=== PATIENT | male | born 1940 | race Two or more races ===

== ENCOUNTER → 2016-07-24 11:09 | Outpatient (CLI) | payer MEDICARE, BC ==
[2012-09-24 07:08] VITALS: BMI 32.0
== END | disposition home or self-care (01) ==
LOC: D.MRI 11:09
DX: M54.12 Radiculopathy, cervical region (principal)

== ENCOUNTER → 2017-10-06 08:08 | Outpatient (CLI) | payer MEDICARE ==
[2012-09-24 07:08] VITALS: BMI 32.0
[~2017-10-06 08:08] MED LIST: ACTOS30 MG; BAYER CHEWABLE81 MG PO; CATAPRES0.1 MG PO; DESERYL100 MG PO; FEXMID7.5 MG PO; GLUCOPHAGE1000 MG PO; HYDROCODONE-APA1 TAB PO; LEVAQUIN750 MG PO; METOPROLOL TART50 MG PO; NEURONTIN800 MG PO; NIFEDIPINE ER90 MG PO; NORVASC5 MG PO; PLAVIX75 MG PO; REQUIP4 MG PO; TRESIBA FL100 UNIT/1 SC
[2017-10-26 17:41] VITALS: BMI 27.1
== END | disposition home or self-care (01) ==
LOC: D.CT 10-01 14:00
DX: I65.23 Occlusion and stenosis of bilateral carotid arteries (principal)

== ENCOUNTER → 2017-10-09 08:36 | Outpatient (CLI) | payer MEDICARE ==
[~2017-10-09] VITALS: Ht 165.1 cm; Wt 74.1 kg
--- NOTE | ~2017-10-09 | OP ---
PATIENT NAME: RUSTY MENDEZ JR MEDICAL RECORD: [id number] :42 LOCATION:[facility] ADMISSION DATE: SURGEON: JEREMI DYE MD DATE OF OPERATION: 10/09/2017 PROCEDURE: Four-vessel carotid and vertebral angiography. INDICATION: Carotid vascular disease. PROCEDURE PERFORMED: After informed consent was obtained and after a detailed description of risks, benefits as well as alternative therapies, the patient elected to proceed with angiogram. The right femoral area had a preexisting sheath from coronary intervention. All catheter exchanged through this sheath. FINDINGS: There was subselection of each subclavian as well as the left carotid. RIGHT SIDE: The common and external carotids are widely patent. Internal carotid has 80% and 90% stenosis. Vertebral artery is widely patent. LEFT SYSTEM: The vertebral artery is totally occluded. The common and external carotids are patent. The internal carotid is totally occluded. 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 TRANSINT:[id number] Voice Confirmation ID: [id number] DOCUMENT ID: [id number] JEREMI DYE MD at 1849 CC: [id number] DICTATION DATE: 10/09/17 1402 QA AUTOMATION DEVELOPER: 10/09/17 2223 DEP CLI 10/09/17 [id number] [place] [address]
--- NOTE | ~2017-10-09 | HEMODYNAMI ---
PATIENT:RUSTY MENDEZ JR MEDICAL RECORD: [id number] : 42 LOCATION:[facility] ADMISSION DATE: 10/09/17 Generatedon:10/09/201714:07 Patient name: RUSTY MENDEZ Patient #: [id number] SSN: : 1940 Date of study: 10/09/2017 Page: Of Hemodynamic Procedure Report Patient Data Patient Demographics Procedure consent was obtained First Name: RUSTY Gender: Male Last Name: VANESSA Suffix: Patient #: [id number] : 1940 Age: 77 year(s) Accession #: Race: Other [id number] Additional ID: [id number] Contact details [address]: [address] [place] [address] State: [place] City: [place] Zip code: [address] Admission Admission Data Admission Date: 10/09/2017 Admission Time: 8:36 Admit Source: Other Procedure Procedure Types Cath Procedure Diagnostic Procedure LHC LHC w/Coronaries PCI Procedure Coronary Stent Coronary Stent Initial Peripheral Cath Diagnostic Procedure Cath Peripheral Four Vessel Arteriogram Procedure Description Procedure Date Procedure Date: 10/09/2017 Procedure Start Time: 13:43 Procedure End Time: 14:00 Procedure Staff Name Function Sigrid Mata RT Monitor Darren Packer RN Hardwood Finisher Brenton Denny MD Performing Physician Miah Shah RT Scrub Dilan Hagen RN Nurse Procedure Data Cath Procedure Fluoroscopy Diagnostic fluoroscopy Total fluoroscopy Time: 4.2 time: 4.2 min min Diagnostic fluoroscopy Total fluoroscopy dose: 462 dose: 462 mGy mGy Contrast Material Contrast Material Type Amount (ml) Isovue 370 137 Entry Location Entry Primary Successful Side Size Upsize Upsize Entry Closure Rodrigez ccessful Closure Location (Fr) 1 (Fr) 2 (Fr) Remarks Device Remarks Femoral Right 5 Fr 6 Fr Mechanical artery Short Compression Estimated blood loss: 10 ml Diagnostic catheters Device Type Used For End Catheter Placement MULTIPACK Pigtail 5 Fr LV Angiography catheter MULTIPACK JL 4.0 5Fr Left Coronary catheter Angiography MULTIPACK 3DRC 5Fr Right Coronary catheter Angiography MULTIPACK 3DRC 5Fr Vertebral (neck catheter and/or head) arteriography MULTIPACK 3DRC 5Fr Cervical carotid catheter (common) arteriography MULTIPACK 3DRC 5Fr Cervical carotid catheter (common) arteriography MULTIPACK 3DRC 5Fr Vertebral (neck catheter and/or head) arteriography Procedure Complications No complications Procedure Medications Medication Administration Route Dosage 0.9% NaCl I.V. 100 ml/hr Oxygen etCO2 Nasal cannula 2 l/min Heparin Flush Bag added to field 2 bags (1000units/500ml NS) Lidocaine 2% added to field 20 Versed I.V. 1 mg Fentanyl I.V. 50 mcg Fentanyl I.V. 50 mcg Versed I.V. 1 mg Heparin Bolus I.V. 4000 units Hemodynamics Rest Heart Rate: 55 (bpm) Snapshots Pre Cath Intra NCS Post Cath Vital Signs Time Heart Resp SPO2 etCO2 NIBP (mmHg) Rhythm Pain Sedation Rate (ipm) (%) (mmHg) Status Level (bpm) 13:38:30 78 21 97 20.9 161/82(140) NSR 0 (11) 10(A) , No pain 13:43:11 66 16 99 39.7 172/100(140) NSR 0 (11) 10(A) , No pain 13:47:56 65 15 98 17.2 172/88(131) NSR 0 (11) 10(A) , No pain 13:52:45 66 15 96 34.4 178/70(94) NSR 0 (11) 10(A) , No pain 13:57:31 68 13 99 25.4 187/94(135) NSR 0 (11) 10(A) , No pain Medications Time Medication Route Dose Verified Delivered Reason Notes Effectiveness by by 13:34:34 0.9% NaCl I.V. 100 Dilan Dilan Per physician ml/hr Hieu Hagen RN RN 13:34:44 Oxygen etCO2 2 Dilan Dilan Per physician Nasal l/min Hieu Hagen cannula RN RN 13:34:53 Heparin Flush added 2 Dilan Dilan used for Bag to bags Hieu Hagen procedure (1000units/500ml field DECKER RN NS) 13:35:03 Lidocaine 2% added 20ml Dilan Dilan for local to vial Lorigan Lorigan anesthetic field JERONIMO DECKER 13:42:13 Versed I.V. 1 mg Dilan Dilan for sedation Hieu Hagen RN, RN 13:42:21 Fentanyl I.V. 50 Dilan Dilan for sedation mcg Hieu Hagen RN RN 13:44:53 Fentanyl I.V. 50 Dilan Dilan for sedation mcg Hieu Hagen RN, RN 13:45:00 Versed I.V. 1 mg Dilan Dilan for sedation Hieu Hagen RN RN 13:51:49 Heparin Bolus I.V. 4000 Dilan Dilan for units Hieu Hagen anticoagulation RN multifocal button generator Log Time Note 13:15:20 Informed consent obtained and on chart 13:15:25 Admit Source: Other 13:15:44 Diagnostic Cath status Elective 13:15:45 Darren Packer RN sent for patient. Start room use. 13:15:46 Time tracking: Regular hours (M-F 7:00 - 5:00) 13:15:49 Plan of Care:Hemodynamics will remain stable., Cardiac rhythm will remain stable., Comfort level will be maintained., Respiratory function will remain adequate., Patient/ family verbilizes understanding of procedure., Procedure tolerated without complication., Recovers from procedure without complications.. 13:23:25 Patient received from Pre/Post Procedure Room to CCL 1 Alert and oriented. Tansferred to table in Supine position. 13:23:27 Correct patient and procedure confirmed by team. 13:23:27 Warm blankets applied, and erin hugger turned on for patient comfort. 13:23:28 ECG and BP/O2 sat monitors applied to patient. 13:23:30 Full Disclosure recording started 13:34:34 0.9% NaCl 100 ml/hr I.V. was administered by Dilan Hagen RN; Per physician; 13:34:44 Oxygen 2 l/min etCO2 Nasal cannula was administered by Dilan Hagen RN; Per physician; 13:34:53 Heparin Flush Bag (1000units/500ml NS) 2 bags added to field was administered by Dilan Hagen RN; used for procedure; 13:35:03 Lidocaine 2% 20ml vial added to field was administered by Dialn Hagen RN; for local anesthetic; 13:37:37 Vital chart was started 13:37:41 Rhythm: sinus rhythm 13:37:51 H&P Date Dictated: 09/29/2017 Within 30 days and on chart., H&P Addendum completed by physician on day of procedure. (MUST COMPLETE FOR ALL OUTPATIENTS). 13:37:53 Pre-op teaching completed and patient verbalized understanding. 13:37:53 Pre-procedure instructions explained to patient. 13:37:55 Family in patients room. 13:37:57 Patient NPO since Midnight. 13:38:00 Is the patient allergic to Iodine/contrast media? No. 13:38:02 Is patient on blood thinner?Yes 13:38:04 ACC The patient was administered the following blood thiners within the last 24 hours: ACCPlavix 13:38:06 Patient diabetic? Yes. 13:38:07 If diabetic: On Metformin? Yes 13:38:09 If on Metformin: Last Dose? 10/04/2017 13:38:12 Previous problem with sedation/anesthesia? No ? 13:38:14 Snore? No 13:38:15 Sleep apnea? No 13:38:16 Deviated septum? No 13:38:17 Opens mouth fully? Yes 13:38:18 Sticks out tongue? Yes 13:38:19 Airway obstruction? No ? 13:38:21 Dentures? No ? 13:38:23 Pre procedure: right dorsailis pedis pulse 2+ Normal; easily identifiable; not easily obliterated 13:38:24 Patient pain scale 0/10 ?. 13:38:30 IV patent on arrival in left forearm with 0.9% NaCl at [facility]. 13:38:33 Lab results completed and on chart. 13:38:35 Right groin area was prepped with chlora-prep and draped in sterile fashion 13:38:36 Sharps counted by scrub and verified by R.N. 13:38:36 Alarms reviewed by R. N. 13:38:40 Use device set Femoral Dx 13:38:41 Bag Decanter (2001S) opened to sterile field. 13:38:41 ACIST Syringe (48153) opened to sterile field. 13:38:42 Medline Cath Pack ([id number]) opened to sterile field. 13:38:43 DIAGNOSTIC WIRE .035 260cm J wire (112323) opened to sterile field. 13:38:44 ACIST Manifold (47029) opened to sterile field. 13:38:44 ACIST Hand Control (51461) opened to sterile field. 13:38:45 Tegaderm 4 x 4 (0386W) opened to sterile field. 13:38:45 DIAGNOSTIC Multipack 5Fr catheter set (UQ0055) opened to sterile field. 13:38:46 PERCUTANEOUS ENTRY 19GA needle opened to sterile field. 13:38:47 SHEATH Prelude 5Fr 0.035 (PFS-0G-38-035) opened to sterile field. 13:39:18 Baseline sample Acquired. 13:39:22 Physician paged 13:40:47 Final Timeout: patient, procedure, and site verified with staff and physician. All members of the team are in agreement. 13:40:49 Right groin site verified by team. 13:40:51 Physical assessment completed. ASA score P 2 - A patient with mild systemic disease as per Brenton Denny MD. 13:40:54 Sedation plan: IV Moderate Sedation Medication:Versed, Fentanyl 13:41:42 Zero performed for pressure channel P1 13:41:53 Zero performed for pressure channel P1 13:42:13 Versed 1 mg I.V. was administered by Dilan Hagen RN; for sedation; 13:42:21 Fentanyl 50 mcg I.V. was administered by Dilan Hagen RN; for sedation; 13:43:00 Procedure started. 13:43:03 Local anesthetic to right femoral artery with Lidocaine 2% by Brenton Denny MD.INITIAL ACCESS ONLY 13:43:21 A 5 Fr sheath was inserted into the Right Femoral artery 13:44:53 Fentanyl 50 mcg I.V. was administered by Dilan Hagen RN; for sedation; 13:45:00 Versed 1 mg I.V. was administered by Dilan Hagen RN; for sedation; 13:45:24 A MULTIPACK Pigtail 5 Fr catheter was advanced over the wire and used for LV Angiography. 13:45:27 LV gram done using TONY 13:45:30 Injector settings: Ml/sec: 10, Volume: 20, 13:45:31 Catheter removed. 13:45:39 A MULTIPACK JL 4.0 5Fr catheter was advanced over the wire and used for Left Coronary Angiography. 13:46:02 Use device set MARNIE PCI 13:46:04 INFLATOR Merit BasixCompak (QC6890) opened to sterile field. 13:46:08 SHEATH Prelude 6Fr 0.035 (HAS-0U-29-035) opened to sterile field. 13:46:30 Catheter removed. 13:46:46 A MULTIPACK 3DRC 5Fr catheter was advanced over the wire and used for Right Coronary Angiography. 13:46:50 CHOICE PT Extra Support 182cm wire ([id number]) opened to sterile field. 13:48:08 A MULTIPACK 3DRC 5Fr catheter was advanced over the wire and used for Vertebral (neck and/or head) arteriography. left 13:48:24 A MULTIPACK 3DRC 5Fr catheter was advanced over the wire and used for Cervical carotid (common) arteriography.LEFT 13:49:30 A MULTIPACK 3DRC 5Fr catheter was advanced over the wire and used for Cervical carotid (common) arteriography.RIGHT 13:49:46 A MULTIPACK 3DRC 5Fr catheter was advanced over the wire and used for Vertebral (neck and/or head) arteriography.RIGHT 13:49:49 Catheter removed. 13:50:19 GUIDE 6FR AR 1.0 catheter ([id number]) opened to sterile field. 13:50:29 Sheath upsized to a 6 Fr Short. 13:51:45 6 Fr AR 1.0 guide catheter was inserted over the wire 13:51:49 Heparin Bolus 4000 units I.V. was administered by Dilan Hagen RN; for anticoagulation; 13:52:18 CHOICE PT ES wire advanced. 13:53:41 Place stent Inflation Number: 1 A VERONICA RX 3.0 x 15 stent ([id number]) was prepped and advanced across the Dist RCA. The stent was deployed at 11 ANNIKA for 0:09 (min:sec). 13:54:13 Stent catheter was removed intact over wire. 13:55:07 Place stent Inflation Number: 1 A VERONICA RX 3.5 x 18 stent ([id number]) was prepped and advanced across the Mid RCA. The stent was deployed at 15 ANNIKA for 0:07 (min:sec). 13:55:20 Stent catheter was removed intact over wire. 13:55:36 Guide catheter removed. 13:55:36 Wire removed. 13:55:46 Sheath removed intact; hemostasis achieved with Mechanical Compression to the Right Femoral artery. 13:56:01 Procedure ended.(Physican Out) 13:56:24 Fluoroscopy time 04.20 minutes. 13:56:27 Fluoroscopy dose: 462 mGy 13:56:27 Flurop Dose total: 462 13:56:32 Contrast amount:Isovue 370 137ml. 13:56:33 Sharps counted by scrub and verified by R.N. 13:56:57 Insertion/operative site no bleeding no hematoma. 13:57:00 Post-op/insertion site Right Femoral artery dressed using a 4 x 4 and Tegaderm. 13:57:03 Post right femoral artery:stable, clean and dry 13:57:08 Post Procedure Pulses reassessed and unchanged 13:57:10 Post-procedure physical assessment completed. ASA score P 2 - A patient with mild systemic disease as per Brenton Denny MD. 13:57:13 Post procedure rhythm: unchanged. 13:57:15 Estimated blood loss: 10 ml 13:57:16 Post procedure instruction explained to patient.Patient verbalizes understanding. 13:57:17 Patient needs reinforcement of post procedure teaching. 13:57:37 Procedure type changed to Cath procedure, Diagnostic procedure, LHC, LHC w/Coronaries, PCI procedure, Coronary Stent, Coronary Stent Initial, Peripheral Cath Diagnostic Procedure, Cath Peripheral, Four Vessel Arteriogram 13:57:47 Procedure Complication : No complications 13:57:49 See physician's report for complete and final results. 13:57:57 EXOSEAL 6Fr (EX600) opened to sterile field. 13:58:08 Post right femoral artery:oozing 13:58:23 Femstop placed over the right femoral artery at 210 mmHg. Hemostasis achieved. 13:58:40 FEMSTOP Gold (E68634) opened to sterile field. 13:58:40 Procedure and supply charges have been captured, reviewed, submitted and are correct. 14:00:29 Vital chart was stopped 14:00:31 Report given to Pre/Post Procedure Room. 14:00:33 Patient transfered to Pre/Post Procedure Room with Stretcher. 14:00:44 Full Disclosure recording stopped 14:00:44 Procedure ended. 14:00:47 End room use (Document Last) Intervention Summary Intervention Notes Time ActionType Lesion and Equipment Used Action# Pressure Duration Attributes 13:53:41 Place stent Dist RCA VERONICA RX 3.0 x 1 11 00:09 15 stent ([id number]) 13:55:07 Place stent Mid RCA VERONICA RX 3.5 x 1 15 00:07 18 stent ([id number]) Device Usage Item Name Manufacture Quantity Catalog Number Hospital Part Current Minimal Lot# / Charge Number Stock Stock Serial# Code ACIST Syringe Acist 1 10514 508107 087758 122165 20 (91698) [employer] Bag Decanter Microtek 1 689964 27132 532934 5 () Medical Inc. Medline Cath Cardinal 1 [id number] 783003 40404 988821 5 Pack Health ([id number]) DIAGNOSTIC WIRE [facility] [place] 1 301903 953113 199186 053976 30 .035 260cm J wire (996850) ACIST Hand Acist 1 42413 801502 292231 693628 5 Control (70352) [employer] Inc ACIST Manifold Acist 1 82415 244113 243898 375778 5 (02948) [employer] Inc DIAGNOSTIC Cardinal 1 ME7084 015085 83311 946022 30 Multipack 5Fr Health catheter set ([id number]) Tegaderm 4 x 4 3M 1 1626W 249949 756633 299962 5 (1626W) PERCUTANEOUS Cook Medical 1 D28033 529982 183109 5 ENTRY 19GA needle SHEATH Prelude Merit 1 SBH-1H-58-035 531882 260293 347361 5 5Fr 0.035 Medical (PFL-3W-11-035) MULTIPACK Cardinal 1 952195 5 Pigtail 5 Fr Health catheter MULTIPACK JL Cardinal 1 782722 5 4.0 5Fr Health catheter INFLATOR Merit Merit 1 UN1727 495601 798683 701633 15 BasixComLatinComicsk Medical ([id number]) SHEATH Prelude Merit 1 VON-1P-59-35 538852 8676904 460862 5 6Fr 0.035 Medical (TDS-5V-08-035) MULTIPACK 3DRC Cardinal 1 485592 5 5Fr catheter Health CHOICE PT Extra [place] 1 [id number] 773103 303117 265582 5 Support 182cm Scientific wire ([id number]) GUIDE 6FR AR Medtronic 1 [id number] 580129 59315 617875 1 1.0 catheter (EN2TB88) VERONICA RX 3.0 x Medtronic 1 [id number] 707569 1951285 571501 5 [id number] 15 stent ([id number]) VERONICA RX 3.5 x Medtronic 1 [id number] 678687 2722670 304223 5 [id number] 18 stent ([id number]) EXOSEAL 6Fr Cardinal 1 EX600 335426 276993 721148 10 (EX600) Health FEMSTOP Gold [facility] [place] 1 G11515 811615 452840 940835 5 ([id number]) Signature Audit Gilbert Stage Time Signature Unsigned Intra-Procedure 10/09/2017 Sigrid Matta Counts 2:01:01 PM Counts RT(R) RT(R) 10/09/2017 2:05:37 PM Intra-Procedure 10/09/2017 Sigrid 2:07:16 PM Counts RT(R) Signatures Monitor : Sigrid Signature : Counts RT Date : Time : [address] [address]
--- NOTE | ~2017-10-09 | HEMODYNAMI ---
PATIENT:RUSTY MENDEZ JR MEDICAL RECORD: [id number] : 42 LOCATION:[facility] ADMISSION DATE: 10/09/17 Generatedon:10/09/201714:01 Patient name: RUSTY MENDEZ Patient #: [id number] SSN: : 1940 Date of study: 10/09/2017 Page: Of Hemodynamic Procedure Report Patient Data Patient Demographics Procedure consent was obtained First Name: RUSTY Gender: Male Last Name: VANESSA Suffix: Patient #: [id number] : 1940 Age: 77 year(s) Accession #: Race: Other [id number] Additional ID: [id number] Contact details Address: [address] [place] [address] State: [place] City: [place] Zip code: [address] Admission Admission Data Admission Date: 10/09/2017 Admission Time: 8:36 Admit Source: Other Procedure Procedure Types Cath Procedure Diagnostic Procedure LHC LHC w/Coronaries PCI Procedure Coronary Stent Coronary Stent Initial Peripheral Cath Diagnostic Procedure Cath Peripheral Four Vessel Arteriogram Procedure Description Procedure Date Procedure Date: 10/09/2017 Procedure Start Time: 13:43 Procedure End Time: 14:00 Procedure Staff Name Function Brenton Denny MD Performing Physician Sigrid Mata RT Monitor Miah Shah RT Scrub Dilan Hagen RN Nurse Darren Packer RN Staff Development Nurse Procedure Data Cath Procedure Fluoroscopy Diagnostic fluoroscopy Total fluoroscopy Time: 4.2 time: 4.2 min min Diagnostic fluoroscopy Total fluoroscopy dose: 462 dose: 462 mGy mGy Contrast Material Contrast Material Type Amount (ml) Isovue 370 137 Entry Location Entry Primary Successful Side Size Upsize Upsize Entry Closure Succes sful Closure Location (Fr) 1 (Fr) 2 (Fr) Remarks Device Remarks Femoral Right 5 Fr 6 Fr Exoseal artery Short Estimated blood loss: 10 ml Diagnostic catheters Device Type Used For End Catheter Placement MULTIPACK Pigtail 5 Fr LV Angiography catheter MULTIPACK JL 4.0 5Fr Left Coronary catheter Angiography MULTIPACK 3DRC 5Fr Right Coronary catheter Angiography MULTIPACK 3DRC 5Fr Vertebral (neck catheter and/or head) arteriography MULTIPACK 3DRC 5Fr Cervical carotid catheter (common) arteriography MULTIPACK 3DRC 5Fr Cervical carotid catheter (common) arteriography MULTIPACK 3DRC 5Fr Vertebral (neck catheter and/or head) arteriography Procedure Complications No complications Procedure Medications Medication Administration Route Dosage 0.9% NaCl I.V. 100 ml/hr Oxygen etCO2 Nasal cannula 2 l/min Heparin Flush Bag added to field 2 bags (1000units/500ml NS) Lidocaine 2% added to field 20 Versed I.V. 1 mg Fentanyl I.V. 50 mcg Fentanyl I.V. 50 mcg Versed I.V. 1 mg Heparin Bolus I.V. 4000 units Hemodynamics Rest Heart Rate: 55 (bpm) Snapshots Pre Cath Intra NCS Post Cath Vital Signs Time Heart Resp SPO2 etCO2 NIBP (mmHg) Rhythm Pain Sedation Rate (ipm) (%) (mmHg) Status Level (bpm) 13:38:30 78 21 97 20.9 161/82(140) NSR 0 (11) 10(A) , No pain 13:43:11 66 16 99 39.7 172/100(140) NSR 0 (11) 10(A) , No pain 13:47:56 65 15 98 17.2 172/88(131) NSR 0 (11) 10(A) , No pain 13:52:45 66 15 96 34.4 178/70(94) NSR 0 (11) 10(A) , No pain 13:57:31 68 13 99 25.4 187/94(135) NSR 0 (11) 10(A) , No pain Medications Time Medication Route Dose Verified Delivered Reason Notes Effectiveness by by 13:34:34 0.9% NaCl I.V. 100 Dilan Dilan Per physician ml/hr Hieu Hagen RN RN 13:34:44 Oxygen etCO2 2 Dilan Dilan Per physician Nasal l/min Hieu Hagen cannula RN RN 13:34:53 Heparin Flush added 2 Dilan Dilan used for Bag to bags Hieu Hagen procedure (1000units/500ml field DECKER RN NS) 13:35:03 Lidocaine 2% added 20ml Dilan Dilan for local to vial Lorigan Lorigan anesthetic field JERONIMO DECKER 13:42:13 Versed I.V. 1 mg Dilan Dilan for sedation Hieu Hagen RN, RN 13:42:21 Fentanyl I.V. 50 Dilan Dilan for sedation mcg Hieu Hagen RN RN 13:44:53 Fentanyl I.V. 50 Dilan Dilan for sedation mcg Hieu Hagen RN RN 13:45:00 Versed I.V. 1 mg Dilan Dilan for sedation Hieu Hagen RN RN 13:51:49 Heparin Bolus I.V. 4000 Dilan Dilan for units Hieu Hagen anticoagulation RN regional driver Log Time Note 13:15:20 Informed consent obtained and on chart 13:15:25 Admit Source: Other 13:15:44 Diagnostic Cath status Elective 13:15:45 Darren Packer RN sent for patient. Start room use. 13:15:46 Time tracking: Regular hours (M-F 7:00 - 5:00) 13:15:49 Plan of Care:Hemodynamics will remain stable., Cardiac rhythm will remain stable., Comfort level will be maintained., Respiratory function will remain adequate., Patient/ family verbilizes understanding of procedure., Procedure tolerated without complication., Recovers from procedure without complications.. 13:23:25 Patient received from Pre/Post Procedure Room to CCL 1 Alert and oriented. Tansferred to table in Supine position. 13:23:27 Warm blankets applied, and erin hugger turned on for patient comfort. 13:23:27 Correct patient and procedure confirmed by team. 13:23:28 ECG and BP/O2 sat monitors applied to patient. 13:23:30 Full Disclosure recording started 13:34:34 0.9% NaCl 100 ml/hr I.V. was administered by Dilan Hagen RN; Per physician; 13:34:44 Oxygen 2 l/min etCO2 Nasal cannula was administered by Dilan Hagen RN; Per physician; 13:34:53 Heparin Flush Bag (1000units/500ml NS) 2 bags added to field was administered by Dilan Hagen RN; used for procedure; 13:35:03 Lidocaine 2% 20ml vial added to field was administered by Dilan Hagen RN; for local anesthetic; 13:37:37 Vital chart was started 13:37:41 Rhythm: sinus rhythm 13:37:51 H&P Date Dictated: 09/29/2017 Within 30 days and on chart., H&P Addendum completed by physician on day of procedure. (MUST COMPLETE FOR ALL OUTPATIENTS). 13:37:53 Pre-procedure instructions explained to patient. 13:37:53 Pre-op teaching completed and patient verbalized understanding. 13:37:55 Family in patients room. 13:37:57 Patient NPO since Midnight. 13:38:00 Is the patient allergic to Iodine/contrast media? No. 13:38:02 Is patient on blood thinner?Yes 13:38:04 ACC The patient was administered the following blood thiners within the last 24 hours: ACCPlavix 13:38:06 Patient diabetic? Yes. 13:38:07 If diabetic: On Metformin? Yes 13:38:09 If on Metformin: Last Dose? 10/04/2017 13:38:12 Previous problem with sedation/anesthesia? No ? 13:38:14 Snore? No 13:38:15 Sleep apnea? No 13:38:16 Deviated septum? No 13:38:17 Opens mouth fully? Yes 13:38:18 Sticks out tongue? Yes 13:38:19 Airway obstruction? No ? 13:38:21 Dentures? No ? 13:38:23 Pre procedure: right dorsailis pedis pulse 2+ Normal; easily identifiable; not easily obliterated 13:38:24 Patient pain scale 0/10 ?. 13:38:30 IV patent on arrival in left forearm with 0.9% NaCl at [facility]. 13:38:33 Lab results completed and on chart. 13:38:35 Right groin area was prepped with chlora-prep and draped in sterile fashion 13:38:36 Alarms reviewed by R. N. 13:38:36 Sharps counted by scrub and verified by R.N. 13:38:40 Use device set Femoral Dx 13:38:41 ACIST Syringe (51399) opened to sterile field. 13:38:41 Bag Decanter (2002S) opened to sterile field. 13:38:42 Medline Cath Pack ([id number]) opened to sterile field. 13:38:43 DIAGNOSTIC WIRE .035 260cm J wire (477966) opened to sterile field. 13:38:44 ACIST Hand Control (84135) opened to sterile field. 13:38:44 ACIST Manifold (36685) opened to sterile field. 13:38:45 DIAGNOSTIC Multipack 5Fr catheter set (CP9802) opened to sterile field. 13:38:45 Tegaderm 4 x 4 (1626W) opened to sterile field. 13:38:46 PERCUTANEOUS ENTRY 19GA needle opened to sterile field. 13:38:47 SHEATH Prelude 5Fr 0.035 (CGL-2T-13-035) opened to sterile field. 13:39:18 Baseline sample Acquired. 13:39:22 Physician paged 13:40:47 Final Timeout: patient, procedure, and site verified with staff and physician. All members of the team are in agreement. 13:40:49 Right groin site verified by team. 13:40:51 Physical assessment completed. ASA score P 2 - A patient with mild systemic disease as per Brenton Denny MD. 13:40:54 Sedation plan: IV Moderate Sedation Medication:Versed, Fentanyl 13:41:42 Zero performed for pressure channel P1 13:41:53 Zero performed for pressure channel P1 13:42:13 Versed 1 mg I.V. was administered by Dilan Hagen RN; for sedation; 13:42:21 Fentanyl 50 mcg I.V. was administered by Dilan Hagen RN; for sedation; 13:43:00 Procedure started. 13:43:03 Local anesthetic to right femoral artery with Lidocaine 2% by Brenton Denny MD.INITIAL ACCESS ONLY 13:43:21 A 5 Fr sheath was inserted into the Right Femoral artery 13:44:53 Fentanyl 50 mcg I.V. was administered by Dilan Hagen RN; for sedation; 13:45:00 Versed 1 mg I.V. was administered by Dilan Hagen RN; for sedation; 13:45:24 A MULTIPACK Pigtail 5 Fr catheter was advanced over the wire and used for LV Angiography. 13:45:27 LV gram done using TONY 13:45:30 Injector settings: Ml/sec: 10, Volume: 20, 13:45:31 Catheter removed. 13:45:39 A MULTIPACK JL 4.0 5Fr catheter was advanced over the wire and used for Left Coronary Angiography. 13:46:02 Use device set MARNIE PCI 13:46:04 INFLATOR Merit BasixCompak (LH6868) opened to sterile field. 13:46:08 SHEATH Prelude 6Fr 0.035 (GKV-4X-99-035) opened to sterile field. 13:46:30 Catheter removed. 13:46:46 A MULTIPACK 3DRC 5Fr catheter was advanced over the wire and used for Right Coronary Angiography. 13:46:50 CHOICE PT Extra Support 182cm wire ([id number]) opened to sterile field. 13:48:08 A MULTIPACK 3DRC 5Fr catheter was advanced over the wire and used for Vertebral (neck and/or head) arteriography. left 13:48:24 A MULTIPACK 3DRC 5Fr catheter was advanced over the wire and used for Cervical carotid (common) arteriography.LEFT 13:49:30 A MULTIPACK 3DRC 5Fr catheter was advanced over the wire and used for Cervical carotid (common) arteriography.RIGHT 13:49:46 A MULTIPACK 3DRC 5Fr catheter was advanced over the wire and used for Vertebral (neck and/or head) arteriography.RIGHT 13:49:49 Catheter removed. 13:50:19 GUIDE 6FR AR 1.0 catheter (GY1CH01) opened to sterile field. 13:50:29 Sheath upsized to a 6 Fr Short. 13:51:45 6 Fr AR 1.0 guide catheter was inserted over the wire 13:51:49 Heparin Bolus 4000 units I.V. was administered by Dilan Hagen RN; for anticoagulation; 13:52:18 CHOICE PT ES wire advanced. 13:53:41 Place stent Inflation Number: 1 A VERONICA RX 3.0 x 15 stent ([id number]) was prepped and advanced across the Dist RCA. The stent was deployed at 11 ANNIKA for 0:09 (min:sec). 13:54:13 Stent catheter was removed intact over wire. 13:55:07 Place stent Inflation Number: 1 A VERONICA RX 3.5 x 18 stent ([id number]) was prepped and advanced across the Mid RCA. The stent was deployed at 15 ANNIKA for 0:07 (min:sec). 13:55:20 Stent catheter was removed intact over wire. 13:55:36 Wire removed. 13:55:36 Guide catheter removed. 13:55:46 Sheath removed intact; hemostasis achieved with Exoseal to the Right Femoral artery. 13:56:01 Procedure ended.(Physican Out) 13:56:24 Fluoroscopy time 04.20 minutes. 13:56:27 Fluoroscopy dose: 462 mGy 13:56:27 Flurop Dose total: 462 13:56:32 Contrast amount:Isovue 370 137ml. 13:56:33 Sharps counted by scrub and verified by R.N. 13:56:57 Insertion/operative site no bleeding no hematoma. 13:57:00 Post-op/insertion site Right Femoral artery dressed using a 4 x 4 and Tegaderm. 13:57:03 Post right femoral artery:stable, clean and dry 13:57:08 Post Procedure Pulses reassessed and unchanged 13:57:10 Post-procedure physical assessment completed. ASA score P 2 - A patient with mild systemic disease as per Brenton Denny MD. 13:57:13 Post procedure rhythm: unchanged. 13:57:15 Estimated blood loss: 10 ml 13:57:16 Post procedure instruction explained to patient.Patient verbalizes understanding. 13:57:17 Patient needs reinforcement of post procedure teaching. 13:57:37 Procedure type changed to Cath procedure, Diagnostic procedure, LHC, LHC w/Coronaries, PCI procedure, Coronary Stent, Coronary Stent Initial, Peripheral Cath Diagnostic Procedure, Cath Peripheral, Four Vessel Arteriogram 13:57:47 Procedure Complication : No complications 13:57:49 See physician's report for complete and final results. 13:57:57 EXOSEAL 6Fr (EX600) opened to sterile field. 13:58:40 Procedure and supply charges have been captured, reviewed, submitted and are correct. 14:00:29 Vital chart was stopped 14:00:31 Report given to Pre/Post Procedure Room. 14:00:33 Patient transfered to Pre/Post Procedure Room with Stretcher. 14:00:44 Procedure ended. 14:00:44 Full Disclosure recording stopped 14:00:47 End room use (Document Last) Intervention Summary Intervention Notes Time ActionType Lesion and Equipment Used Action# Pressure Duration Attributes 13:53:41 Place stent Dist RCA VERONICA RX 3.0 x 1 11 00:09 15 stent ([id number]) 13:55:07 Place stent Mid RCA VERONICA RX 3.5 x 1 15 00:07 18 stent ([id number]) Device Usage Item Name Manufacture Quantity Catalog Number Hospital Part Current Minimal Lot# / Charge Number Stock Stock Serial# Code ACIST Syringe Acist 1 82570 509498 282621 470067 20 (00853) [employer] Bag Decanter Microtek 1 2001S 193214 86207 499114 5 (2001S) Medical Inc. Medline Cath Cardinal 1 [id number] 003219 37023 550538 5 Pack Health ([id number]) DIAGNOSTIC WIRE [place] 1 641799 887003 817948 312573 30 .035 260cm J wire (438342) ACIST Hand Acist 1 91693 017045 581819 230562 5 Control (32549) [employer] Inc ACIST Manifold Acist 1 49911 906599 673493 347640 5 (62022) [employer] Inc DIAGNOSTIC Cardinal 1 QY9612 813132 48916 043214 30 Multipack 5Fr Health catheter set (JM1229) Tegaderm 4 x 4 3M 1 1626W 388057 620269 452922 5 (1626W) PERCUTANEOUS Cook Medical 1 H46075 534917 477559 5 ENTRY 19GA needle SHEATH Prelude Merit 1 PHJ-3W-18-035 432417 523124 150300 5 5Fr 0.035 Medical (BZM-0Z-92-035) MULTIPACK Cardinal 1 600781 5 Pigtail 5 Fr Health catheter MULTIPACK JL Cardinal 1 066664 5 4.0 5Fr Health catheter INFLATOR Merit Merit 1 CE3945 921145 892297 117178 15 BasixCompak Medical (CK5099) SHEATH Prelude Merit 1 EWK-7R-78-35 911046 3735091 442466 5 6Fr 0.035 Medical (CUB-4A-89-035) MULTIPACK 3DRC Cardinal 1 893847 5 5Fr catheter Health CHOICE PT Extra [place] 1 [id number] 287144 474934 935145 5 Support 182cm Scientific wire ([id number]) GUIDE 6FR AR Medtronic 1 QO1HM16 523852 78879 342357 1 1.0 catheter (ZM2KZ00) VERONICA RX 3.0 x Medtronic 1 [id number] 183410 4701084 901799 5 [id number] 15 stent ([id number]) VERONICA RX 3.5 x Medtronic 1 [id number] 835336 6964011 100419 5 [id number] 18 stent ([id number]) EXOSEAL 6Fr Cardinal 1 EX600 019568 584891 088171 10 (EX600) Health Signature Audit [place] Stage Time Signature Unsigned Intra-Procedure 10/09/2017 Sigrid 2:01:01 PM Counts RT(R) Signatures Monitor : Sigrid Signature : Counts RT Date : Time : [address] [place] [address]
--- NOTE | ~2017-10-09 | OP ---
PATIENT NAME: RUSTY MENDEZ JR MEDICAL RECORD: [id number] :42 LOCATION:[facility] ADMISSION DATE: SURGEON: JEREMI DYE MD DATE OF OPERATION: 10/09/2017 PROCEDURES: 1. PTCA stent RCA. 2. Left heart catheterization. 3. Selective coronary angiography. 4. Left ventriculogram. INDICATION: Angina and coronary artery disease. PROCEDURE PERFORMED: After informed consent was obtained and after a detailed description of risks, benefits as well as alternative therapies, the patient elected to proceed with angiogram and angioplasty. The right femoral area is prepped and draped in normal sterile fashion. The right femoral artery was cannulated via modified Seldinger technique with placement of 6-Cameroonian sheath. All catheters exchanged through this sheath. FINDINGS: Left ventriculogram was performed in a standard 30-degree TONY view, reveals preserved cardiac wall motion, ejection fraction 50%. SELECTIVE CORONARY ANGIOGRAPHY: 1. Left main is with no significant angiographic disease. 2. Left anterior descending has 70+ percent stenosis proximally and the diagonal has 80% to 90% stenosis. 3. The left circumflex has 90% stenosis. 4. Right coronary has 2 areas of 70% to 80% stenosis. PTCA STENT OF THE RIGHT CORONARY ARTERY: Stents used were 3.0 x 15 and 3.5 x 18 both [place] stents. Result was 0% residual stenosis. OVERALL IMPRESSION: Successful percutaneous transluminal coronary angioplasty stent of the right coronary going from 70% to 80% initial stenosis. PLAN: PTCA stent of the LAD and circumflex in the next few days. TRANSINT:[id number] Voice Confirmation ID: [id number] DOCUMENT ID: [id number] JEREMI DYE MD at 1849 CC: [id number] DICTATION DATE: 10/09/17 1359 MECHANICAL MAINTENANCE ENGINEER: 10/09/17 2143 DEP CLI 10/09/17 [place] [address]
[2017-10-09 10:00] VITALS: BP 212/92; Ht 165.1 cm; Wt 74.1 kg
[2017-10-09 10:13] LABS: BASOPHILS 0.6 % (0-2); EOSINOPHILS 5.3 % (0-7); HEMATOCRIT 39.2 % (42.0-54.0); HEMOGLOBIN 13.5 g/dL (13.5-17.5); IMMATURE GRANULOCYTES 0.2 % (0-5); LYMPHOCYTES 44.4 % (15-50); MCH 32.4 pg (26.0-34.0); MCHC 34.4 g/dL (31.0-37.0); MEAN PLATELET VOLUME 9.3 fL (7.4-10.4); MONOCYTES 9.6 % (2-11); NEUTROPHILS 39.9 % (40-80); PLATELET COUNT 251 10x3/uL (130-400); RBC 4.17 10x6/uL (4.20-6.10); RDW 11.8 % (11.5-14.5); WBC 6.6 10x3/uL (4.8-10.8)
[2017-10-09 10:37] LABS: CALC OSMOLALITY 280 mosm/kg (275-300); CALCIUM 8.9 mg/dL (8.5-10.1); CARBON DIOXIDE 26.5 mmol/L (21.0-32.0); CHLORIDE - SERUM 104 mmol/L (98-107); CREATININE - SERUM 0.9 mg/dL (0.6-1.3); POTASSIUM - SERUM 4.1 mmol/L (3.5-5.1); SODIUM 139 mmol/L (136-145); UREA NITROGEN 12 mg/dL (7-18); eGFR NON AFRICAN AMERICAN 87 mL/min (90-120)
[2017-10-09 10:47] LABS: GLUCOSE 144 mg/dL (74-106)
== END | disposition home or self-care (01) ==
LOC: D.CATH 08:36
PROVIDERS: Internal Medicine Interventional Cardiology
DX: I25.119 Atherosclerotic heart disease of native coronary artery with unspecified angina pectoris (principal); I65.22 Occlusion and stenosis of left carotid artery; I65.02 Occlusion and stenosis of left vertebral artery; I65.21 Occlusion and stenosis of right carotid artery; Z01.812 Encounter for preprocedural laboratory examination
CPT/HCPCS: 93458; 36222; 36225; C9600

== ENCOUNTER 2017-10-12 08:08 | Outpatient (CLI) | payer MEDICARE ==
[~2017-10-12] VITALS: Ht 165.1 cm; Wt 74.1 kg
--- NOTE | ~2017-10-12 | HEMODYNAMI ---
PATIENT:RUSTY MENDEZ JR MEDICAL RECORD: [id number] : 42 LOCATION:[facility] ADMISSION DATE: 10/12/17 Generatedon:10/12/20179:51 Patient name: RUSTY MENDEZ Patient #: [id number] SSN: : 1940 Date of study: 10/12/2017 Page: Of Hemodynamic Procedure Report Patient Data Patient Demographics Procedure consent was obtained First Name: RUSTY Gender: Male Last Name: VANESSA Suffix: Patient #: [id number] : 1940 Age: 77 year(s) Accession #: Race: Other [id number] Additional ID: [id number] Contact details [address]: [address] [place] [address] State: [place] City: [place] Zip code: [address] Admission Admission Data Admission Date: 10/12/2017 Admission Time: 8:08 Procedure Procedure Types Cath Procedure PCI Procedure Coronary Stent Coronary Stent Initial Peripheral Cath Diagnostic Procedure Cath Peripheral Renal Arteriogram Procedure Description Procedure Date Procedure Date: 10/12/2017 Procedure Start Time: 9:37 Procedure End Time: 9:49 Procedure Staff Name Function Brenton Denny MD Performing Physician Katelyn Woods RT Monitor Freya Mesa RT Scrub Louise Jacobo RN Nurse Procedure Data Cath Procedure Fluoroscopy Diagnostic fluoroscopy Total fluoroscopy Time: 1.8 time: 1.8 min min Diagnostic fluoroscopy Total fluoroscopy dose: 239 dose: 239 mGy mGy Contrast Material Contrast Material Type Amount (ml) Isovue 300 44 Entry Location Entry Primary Successful Side Size Upsize Upsize Entry Closure Succes sful Closure Location (Fr) 1 (Fr) 2 (Fr) Remarks Device Remarks Femoral Left 6 Fr Exoseal artery Short Estimated blood loss: 10 ml Diagnostic catheters Device Type Used For End Catheter Placement DIAGNOSTIC 3DRC 5Fr Procedure catheter ([id number]) Procedure Complications No complications Procedure Medications Medication Administration Route Dosage Oxygen NC 2 l/min Lidocaine 2% added to field 20 Heparin Flush Bag added to field 2 bags (1000units/500ml NS) 0.9% NaCl I.V. 100 ml/hr Versed I.V. 1 mg Fentanyl I.V. 50 mcg Nitro [place] S.L. 400 Heparin Bolus I.V. 4000 units Versed I.V. 1 mg Fentanyl I.V. 50 mcg Hemodynamics Rest Heart Rate: 99 (bpm) Snapshots Pre Cath Intra NCS Post Cath Vital Signs Time Heart Resp SPO2 etCO2 NIBP (mmHg) Rhythm Pain Sedation Rate (ipm) (%) (mmHg) Status Level (bpm) 9:24:15 66 15 98 0 Time NSR 0 (11) 10(A) Exceeded , No pain 9:27:07 62 15 98 0 246/94(204) NSR 0 (11) 10(A) , No pain 9:31:58 61 14 98 31.4 218/86(156) NSR 0 (11) 10(A) , No pain 9:36:34 62 12 100 37.4 203/93(158) NSR 0 (11) 10(A) , No pain 9:41:03 69 15 97 36.7 172/84(139) NSR 0 (11) 9(A) , No pain 9:45:18 80 13 95 34.4 126/108(118) NSR 0 (11) 9(A) , No pain 9:46:59 81 15 96 34.4 141/86(119) NSR 0 (11) 10(A) , No pain 9:51:15 75 12 97 26.9 146/66(118) NSR 0 (11) 10(A) , No pain Medications Time Medication Route Dose Verified Delivered Reason Notes Effectiveness by by 9:29:25 Oxygen NC 2 Brenton Gil used for l/min Eduin Jacobo RN procedure 9:29:33 Lidocaine 2% added 20ml Brenton Farris for local to vial Eduin Denny MD anesthetic field 9:29:39 Heparin Flush added 2 Brenton Farris used for Bag to bags Eduin Denny MD procedure (1000units/500ml field NS) 9:29:49 0.9% NaCl I.V. 100 Brenton Gil Per physician ml/hr Eduin Jacobo RN 9:36:28 Versed I.V. 1 mg Brenton Gil for sedation Eduin Jacobo RN 9:36:33 Fentanyl I.V. 50 Brenton Meyersie for sedation mcg Eduin Jacobo RN 9:38:44 Nitro [place] S.L. 400 Brenton Gil for mcg x Eduin Jacobo RN hypertension 2 9:38:52 Heparin Bolus I.V. 4000 Brenton Gil for verifie d units Eduin Jacobo RN anticoagulation with dr denny 9:41:34 Versed I.V. 1 mg Brenton Gil for sedation Eduin Jacobo RN 9:41:37 Fentanyl I.V. 50 Brenton Gil for sedation mcg Eduin Jacobo RN Procedure Log Time Note 9:05:16 Diagnostic Cath Status : Elective 9:05:32 Freya Mesa RT(R) sent for patient. Start room use. 9:05:33 Time tracking: Regular hours (M-F 7:00 - 5:00) 9:05:38 Plan of Care:Hemodynamics will remain stable., Cardiac rhythm will remain stable., Comfort level will be maintained., Respiratory function will remain adequate., Patient/ family verbilizes understanding of procedure., Procedure tolerated without complication., Recovers from procedure without complications.. 9:20:55 Patient received from Pre/Post Procedure Room to CCL 2 Alert and oriented. Tansferred to table in Supine position. 9:20:57 Warm blankets applied, and erin hugger turned on for patient comfort. 9:20:57 Correct patient and procedure confirmed by team. 9:20:59 Signed procedure consent form obtained from patient. 9:21:00 ECG and BP/O2 sat monitors applied to patient. 9:21:02 Baseline sample Acquired. 9:21:02 Vital chart was started 9:21:06 Rhythm: sinus rhythm 9:21:07 Full Disclosure recording started 9:21:12 H&P Date Dictated: 10/12/2017 Within 30 days and on chart.. 9:21:14 Pre-procedure instructions explained to patient. 9:21:14 Pre-op teaching completed and patient verbalized understanding. 9:21:16 Family in waiting room. 9:21:17 Patient NPO since Midnight. 9:21:19 Is the patient allergic to Iodine/contrast media? No. 9:21:21 Was the patient premedicated? No 9:23:21 Is patient on blood thinner?Yes 9:23:24 ACC The patient was administered the following blood thiners within the last 24 hours: ACCPlavix 9:23:26 Patient diabetic? Yes. 9:23:27 If diabetic: On Metformin? Yes 9:23:32 If on Metformin: Last Dose? 09/30/2017 9:23:38 Snore? Unknown 9:23:40 Sleep apnea? No 9:24:05 Sleep apnea? No 9:24:14 Dentures? Yes out 9:24:23 Patient pain scale 0/10 ?. 9:26:54 IV patent on arrival in left forearm with 0.9% NaCl at O. 9:27:00 Lab results completed and on chart. 9:27:04 Left groin area was prepped with chlora-prep and draped in sterile fashion 9:27:05 Alarms reviewed by R. N. 9:27:06 Sharps counted by scrub and verified by R.N. 9:27:34 Use device set Femoral Dx 9:28:32 DIAGNOSTIC WIRE .035 260cm J wire ([id number]) opened to sterile field. 9:28:35 ACIST Hand Control (82399) opened to sterile field. 9:28:35 ACIST Manifold (30177) opened to sterile field. 9:28:39 ACIST Syringe (48282) opened to sterile field. 9:28:40 Bag Decanter (2002S) opened to sterile field. 9:28:42 Medline Cath Pack ([id number]) opened to sterile field. 9:28:45 Tegaderm 4 x 4 (1626W) opened to sterile field. 9:28:47 PERCUTANEOUS ENTRY 19GA needle opened to sterile field. 9:28:52 CHOICE PT Extra Support 182cm wire ([id number]) opened to sterile field. 9:28:52 INFLATOR Merit BasixCompak (FA7171) opened to sterile field. 9:28:53 SHEATH 6Fr Prelude ([id number]) opened to sterile field. 9:29:25 Oxygen 2 l/min NC was administered by Louise Jacobo RN; used for procedure; 9:29:33 Lidocaine 2% 20ml vial added to field was administered by Brenton Denny MD; for local anesthetic; 9:29:39 Heparin Flush Bag (1000units/500ml NS) 2 bags added to field was administered by Brenton Denny MD; used for procedure; 9:29:49 0.9% NaCl 100 ml/hr I.V. was administered by Louise Jacobo RN; Per physician; 9:34:32 Zero performed for pressure channel P1 9:36:06 Physician arrived 9:36:06 --------ALL STOP TIME OUT------ 9:36:07 Final Timeout: patient, procedure, and site verified with staff and physician. All members of the team are in agreement. 9:36:10 Left groin site verified by team. 9:36:13 Physical assessment completed. ASA score P 2 - A patient with mild systemic disease as per Brenton Denny MD. 9:36:17 Sedation plan: IV Moderate Sedation Medication:Versed, Fentanyl 9:36:28 Versed 1 mg I.V. was administered by Louise Jacobo RN; for sedation; :36:33 Fentanyl 50 mcg I.V. was administered by Louise Jacobo RN; for sedation; 9:36:41 Procedure started. 9:37:00 Local anesthetic to left femerol artery with Lidocaine 2% by Brenton Denny MD.INITIAL ACCESS ONLY 9:37:14 A 6 Fr Short sheath was inserted into the Left Femoral artery 9:37:42 A DIAGNOSTIC 3DRC 5Fr catheter ([id number]) was advanced over the wire and used for Procedure. 9:38:42 angiogram of bilateral renal 9:38:44 Nitro [place] 400 mcg x 2 S.L. was administered by Louise Jacobo RN; for hypertension; 9:38:52 Heparin Bolus 4000 units I.V. was administered by Louise Jacobo RN; for anticoagulation; verified with dr denny 9:39:05 GUIDE 6FR XB 3.5 catheter ([id number]) opened to sterile field. 9:39:16 6 Fr XB 3.5 guide catheter was inserted over the wire 9:39:24 choice pt ex wire advanced. 9:39:26 Wire advanced across lesion. 9:41:34 Versed 1 mg I.V. was administered by Louise Jacobo RN; for sedation; 9:41:37 Fentanyl 50 mcg I.V. was administered by Louise Jacobo RN; for sedation; 9:42:21 Place stent Inflation Number: 1 A VERONICA RX 2.5 x 12 stent ([id number]) was prepped and advanced across the Mid CX. The stent was deployed at 13 ANNIKA for 0:04 (min:sec). 9:42:34 Wire removed. 9:42:34 Guide catheter removed. 9:42:49 Sheath removed intact; hemostasis achieved with Exoseal to the Left Femoral artery. 9:43:02 EXOSEAL 6Fr (EX600) opened to sterile field. 9:43:09 Procedure ended.(Physican Out) 9:45:00 Fluoroscopy time 01.80 minutes. 9:45:04 Fluoroscopy dose: 239 mGy 9:45:04 Flurop Dose total: 239 9:45:13 Contrast amount:Isovue 300 44ml. 9:45:16 Sharps counted by scrub and verified by R.N. 9:45:17 Insertion/operative site no bleeding no hematoma. 9:45:21 Post-op/insertion site Left Femoral artery dressed using a 4 x 4 and Tegaderm. 9:45:23 Post Procedure Pulses reassessed and unchanged 9:47:09 Post-procedure physical assessment completed. ASA score P 2 - A patient with mild systemic disease as per Brenton Denny MD. 9:47:13 Post procedure rhythm: sinus rhythm 9:47:16 Estimated blood loss: 10 ml 9:47:18 Post procedure instruction explained to patient.Patient verbalizes understanding. 9:47:29 Procedure type changed to Cath procedure, PCI procedure, Coronary Stent, Coronary Stent Initial, Peripheral Cath Diagnostic Procedure, Cath Peripheral, Renal Arteriogram 9:47:31 Procedure and supply charges have been captured, reviewed, submitted and are correct. 9:49:28 Procedure Complication : No complications 9:49:31 See physician's report for complete and final results. 9:49:33 Report given to Pre/Post Procedure Room. 9:49:36 Patient transfered to Pre/Post Procedure Room with Stretcher. 9:49:38 Procedure ended. 9:49:38 Full Disclosure recording stopped 9:49:42 End room use (Document Last) 9:51:34 Vital chart was stopped Intervention Summary Intervention Notes Time ActionType Lesion and Equipment Used Action# Pressure Duration Attributes 9:42:21 Place stent Mid CX VERONICA RX 2.5 x 1 13 00:04 12 stent ([id number]) Device Usage Item Name Manufacture Quantity Catalog Number Hospital Part Current M inimal Lot# / Charge Number Stock Stock Serial# Code DIAGNOSTIC [facility] 1 [id number] [id number] 278065 745770 3 0 WIRE .035 260cm J wire (757593) ACIST Hand Acist 1 20892 079344 831627 760725 5 Control Medical (77033) Systems Inc ACIST Manifold Acist 1 99037 695527 784555 347048 5 (16045) Medical Systems Inc ACIST Syringe Acist 1 69336 523057 580565 521988 2 0 (04394) Medical Systems Inc Bag Decanter Microtek 1 2002S 929908 34899 079164 5 (2001S) Medical Inc. Medline Cath Cardinal 1 [id number] 272062 66896 717330 5 Pack Health ([id number]) Tegaderm 4 x 4 3M 1 1626W 782762 289282 652812 5 (1626W) PERCUTANEOUS Cook Medical 1 K59947 205829 379461 5 ENTRY 19GA needle CHOICE PT Touchet 1 [id number] 252405 311432 327686 5 Extra Support Scientific 182cm wire ([id number]) INFLATOR Merit Merit 1 VM7667 436709 458487 938861 1 5 GenOil Medical (DW2294) SHEATH 6Fr Merit 1 [id number] 802296 237043 434354 5 Prelude Medical ([id number]) DIAGNOSTIC Cardinal 1 [id number] 964927 394026 434639 9 3DRC 5Fr Kingspan Wind catheter (640163X) GUIDE 6FR XB Cardinal 1 [id number] 456179 890200 199387 2 3.5 catheter Kingspan Wind ([id number]) VERONICA RX 2.5 x Medtronic 1 [id number] 060199 4810871 873119 5 12 stent ([id number]) EXOSEAL 6Fr Cardinal 1 EX600 542658 978554 779208 1 0 (EX600) Health Signature Audit [place] Stage Time Signature Unsigned Intra-Procedure 10/12/2017 Katelyn Woods 9:51:30 AM RT(R) Signatures Monitor : Katelyn Woods Signature : RT Date : Time : [facility] [address] [place] [address]
--- NOTE | ~2017-10-12 | HEMODYNAMI ---
PATIENT:RUTSY MENDEZ JR MEDICAL RECORD: [id number] : 42 LOCATION:[facility] D.2123 ADMISSION DATE: 10/12/17 Generatedon:10/13/20179:49 Patient name: RUSTY MENDEZ Patient #: [id number] SSN: : 1940 Date of study: 10/13/2017 Page: Of Hemodynamic Procedure Report Patient Data Patient Demographics Procedure consent was obtained First Name: RUSTY Gender: Male Last Name: VANESSA Suffix: Patient #: [id number] : 1940 Age: 77 year(s) Accession #: Race: Other [id number] Additional ID: [id number] Contact details Address: [address] [place] [address] State: [place] City: [place] Zip code: [address] Admission Admission Data Admission Date: 10/12/2017 Admission Time: 8:08 Room #: D.2123 Procedure Procedure Types Cath Procedure Diagnostic Procedure Sedation Charges Moderate Sedation up to 15 minutes PCI Procedure Coronary Stent Coronary Stent Initial Coronary Stent Additional Procedure Description Procedure Date Procedure Date: 10/13/2017 Procedure Start Time: 9:29 Procedure End Time: 9:49 Procedure Staff Name Function Brenton Denny MD Performing Physician Sigrid Mata RT Monitor Dilan Hagen RN Nurse Miah Shah RT Scrub Procedure Data Cath Procedure Fluoroscopy Diagnostic fluoroscopy Total fluoroscopy Time: 6 time: 6 min min Diagnostic fluoroscopy Total fluoroscopy dose: 703 dose: 703 mGy mGy Contrast Material Contrast Material Type Amount (ml) Isovue 370 79 Entry Location Entry Primary Successful Side Size Upsize Upsize Entry Closure Succes sful Closure Location (Fr) 1 (Fr) 2 (Fr) Remarks Device Remarks Femoral Right 6 Fr Exoseal artery Short Estimated blood loss: 10 ml Procedure Complications No complications Procedure Medications Medication Administration Route Dosage 0.9% NaCl I.V. 100 ml/hr Oxygen etCO2 Nasal cannula 2 l/min Heparin Flush Bag added to field 2 bags (1000units/500ml NS) Lidocaine 2% added to field 20 Versed I.V. 2 mg Fentanyl I.V. 100 mcg Versed I.V. 1 mg Heparin Bolus I.V. 4000 units Hemodynamics Rest Pre Cath Intra NCS Post Cath Vital Signs Time Heart Resp SPO2 etCO2 NIBP (mmHg) Rhythm Pain Sedation Rate (ipm) (%) (mmHg) Status Level (bpm) 9:19:02 67 15 99 39.7 187/111(162) NSR 0 (11) 10(A) , No pain 9:23:56 62 13 98 41.9 183/81(156) NSR 0 (11) 10(A) , No pain 9:28:52 61 14 96 44.9 164/84(129) NSR 0 (11) 10(A) , No pain 9:34:13 71 14 94 36.7 178/89(139) NSR 0 (11) 9(A) , No pain 9:39:06 65 14 99 31.4 151/67(114) NSR 0 (11) 9(A) , No pain 9:44:34 67 12 99 44.2 178/78(152) NSR 0 (11) 9(A) , No pain Medications Time Medication Route Dose Verified Delivered Reason Notes Effectiveness by by 9:18:03 0.9% NaCl I.V. 100 Dilan Dilan Per physician ml/hr Hieu Hagen RN RN 9:18:15 Oxygen etCO2 2 Dilan Dilan Per physician Nasal l/min Hieu Hagen cannula RN RN 9:18:25 Heparin Flush added 2 Dilan Dilan used for Bag to bags Hieu Hagen procedure (1000units/500ml RN RN NS) 9:18:37 Lidocaine 2% added 20ml Dilan Dilan for local to vial Hieu Hagen anesthetic RN RN 9:24:34 Versed I.V. 2 mg Dilan Dilan for sedation Hieu Hagen RN RN 9:24:42 Fentanyl I.V. 100 Dilan Dialn for sedation mcg Hieu Hagen RN RN 9:29:07 Versed I.V. 1 mg Dilan Dilan for sedation Hieu Hagen RN RN 9:32:44 Heparin Bolus I.V. 4000 Dilan Dilan for units Hieu Hagen anticoagulation RN farm helper Log Time Note 8:55:34 Time tracking: Regular hours (M-F 7:00 - 5:00) 8:55:39 Plan of Care:Hemodynamics will remain stable., Cardiac rhythm will remain stable., Comfort level will be maintained., Respiratory function will remain adequate., Patient/ family verbilizes understanding of procedure., Procedure tolerated without complication., Recovers from procedure without complications.. 8:58:22 Sigrid Mata RT(R) sent for patient. Start room use. 9:15:16 Patient received from PCU to CCL 1 Alert and oriented. Tansferred to table in Supine position. 9:15:18 Warm blankets applied, and erin hugger turned on for patient comfort. 9:15:18 Correct patient and procedure confirmed by team. 9:15:20 Signed procedure consent form obtained from patient. 9:15:21 ECG and BP/O2 sat monitors applied to patient. 9:15:22 Full Disclosure recording started 9:17:03 Vital chart was started 9:17:06 Rhythm: sinus rhythm 9:18:03 0.9% NaCl 100 ml/hr I.V. was administered by Dilan Hagen RN; Per physician; 9:18:15 Oxygen 2 l/min etCO2 Nasal cannula was administered by Dilan Hagen RN; Per physician; 9:18:25 Heparin Flush Bag (1000units/500ml NS) 2 bags added to field was administered by Dilan Hagen RN; used for procedure; 9:18:37 Lidocaine 2% 20ml vial added to field was administered by Dilan Hagen RN; for local anesthetic; 9:20:29 H&P Date Dictated: 10/13/2017 New H&P dictated by physician.. 9:20:31 Pre-procedure instructions explained to patient. 9:20:32 Pre-op teaching completed and patient verbalized understanding. 9:20:36 Family unavailable. 9:20:38 Patient NPO since Midnight. 9:22:20 Is the patient allergic to Iodine/contrast media? No. 9:22:22 Is patient on blood thinner?Yes 9:22:24 ACC The patient was administered the following blood thiners within the last 24 hours: ACCAspirin, ACCPlavix 9:22:26 Patient diabetic? Yes. 9:22:27 If diabetic: On Metformin? Yes 9:22:30 If on Metformin: Last Dose? 09/30/2017 9:22:34 Previous problem with sedation/anesthesia? No ? 9:22:35 Snore? Yes 9:22:36 Sleep apnea? No 9:22:37 Deviated septum? No 9:22:38 Opens mouth fully? Yes 9:22:38 Sticks out tongue? Yes 9:22:58 Airway obstruction? No ? 9:23:01 Dentures? Yes Out 9:23:05 Pre procedure: right dorsailis pedis pulse 2+ Normal; easily identifiable; not easily obliterated 9:23:06 Patient pain scale 0/10 ?. 9:23:12 IV patent on arrival in left forearm with 0.9% NaCl at [facility]. 9:23:15 Lab results completed and on chart. 9:23:18 Right groin area was prepped with chlora-prep and draped in sterile fashion 9:23:19 Alarms reviewed by R. N. 9:23:19 Sharps counted by scrub and verified by R.N. 9:24:04 TRIED TO CALL C[facility] TO GET NEW H&P IN [facility]. LINE WAS BUSY. 9:24:09 Final Timeout: patient, procedure, and site verified with staff and physician. All members of the team are in agreement. 9:24:10 Right groin site verified by team. 9:24:13 Physical assessment completed. ASA score P 2 - A patient with mild systemic disease as per Brenton Denny MD. 9:24:16 Sedation plan: IV Moderate Sedation Medication:Versed, Fentanyl 9:24:34 Versed 2 mg I.V. was administered by Dilan Hagen RN; for sedation; 9:24:42 Fentanyl 100 mcg I.V. was administered by Dilan Hagen RN; for sedation; 9:25:25 TALKED TO DOT IN C[facility] TO GET H&P IN [facility]. 9:25:28 Use device set CATH PACK 9:25:32 Use device set TAUTH PCI 9:25:43 ACIST Syringe (23546) opened to sterile field. 9:25:43 ACIST Hand Control (75842) opened to sterile field. 9:25:44 ACIST Manifold (45860) opened to sterile field. 9:25:45 Medline Cath Pack ([id number]) opened to sterile field. 9:25:45 Bag Decanter (2002S) opened to sterile field. 9:25:46 DIAGNOSTIC WIRE .035 260cm J wire (317044) opened to sterile field. 9:25:47 INFLATOR Merit BasixCompak (YL5930) opened to sterile field. 9:25:51 Tegaderm 4 x 4 (1626W) opened to sterile field. 9:25:52 PERCUTANEOUS ENTRY 19GA needle opened to sterile field. 9:25:54 SHEATH Prelude 6Fr 0.035 (PZP-0L-54-035) opened to sterile field. 9:26:00 CHOICE PT Extra Support 182cm wire ([id number]) opened to sterile field. 9:26:09 GUIDE 6FR XBLAD 3.5 catheter ([id number]) opened to sterile field. 9:28:29 Procedure started. 9:28:30 Zero performed for pressure channel P1 9:29:07 Versed 1 mg I.V. was administered by Dilan Hagen RN; for sedation; 9:29:26 Local anesthetic to right femoral artery with Lidocaine 2% by Brenton Denny MD.INITIAL ACCESS ONLY 9:29:54 A 6 Fr Short sheath was inserted into the Right Femoral artery 9:30:24 6 Fr XBLAD 3.5 guide catheter was inserted over the wire 9:30:30 CHOICE PT ES TO LAD wire advanced. 9:32:44 Heparin Bolus 4000 units I.V. was administered by Dilan Hagen RN; for anticoagulation; 9:32:59 CHOICE PT ES TO DIAG wire advanced. 9:33:18 CHOICE PT Extra Support 182cm wire ([id number]) opened to sterile field. 9:34:05 Place stent Inflation Number: 1 A VERONICA RX 2.5 x 08 stent ([id number]) was prepped and advanced across the 1st Diag. The stent was deployed at 13 ANNIKA for 0:03 (min:sec). 9:34:49 Stent catheter was removed intact over wire. 9:35:07 WIRE REMOVED FROM DIAG. 9:36:27 Inflation number: 1 The stent balloon was then re-inflated across the Mid LAD to 7 ANNIKA for 0:07 (min:sec). 9:36:44 Inflation number: 2 The stent balloon was then re-inflated across the Mid LAD to 13 ANNIKA for 0:10 (min:sec). 9:37:02 Inflation number: 3 The stent balloon was then re-inflated across the Mid LAD to 17 ANNIKA for 0:09 (min:sec). 9:37:26 Stent catheter was removed intact over wire. 9:39:24 Place stent Inflation Number: 4 A VERONICA RX 3.0 x 22 stent ([id number]) was prepped and advanced across the Mid LAD. The stent was deployed at 19 ANNIKA for 0:16 (min:sec). 9:40:16 Stent catheter was removed intact over wire. 9:40:20 Wire removed. 9:40:40 CHOICE PT ES TO DIAG wire advanced. 9:42:47 Inflate balloon Inflation number: 2 A EUPHORA 2.5 x 10 Balloon ([id number]) was prepped and advanced across the 1st Diag, then inflated to 17 ANNIKA for 0:04 (min:sec). 9:43:00 Balloon removed over the wire. 9:45:08 Sheath removed intact; hemostasis achieved with Exoseal to the Right Femoral artery. 9:45:09 Procedure ended.(Physican Out) 9:45:20 Fluoroscopy time 06.00 minutes. 9:45:23 Fluoroscopy dose: 703 mGy 9:45:23 Flurop Dose total: 703 9:45:31 Contrast amount:Isovue 370 79ml. 9:45:32 Sharps counted by scrub and verified by R.N. 9:45:34 Insertion/operative site no bleeding no hematoma. 9:45:37 Post-op/insertion site Right Femoral artery dressed using a 4 x 4 and Tegaderm. 9:45:40 Post right femoral artery:stable, clean and dry 9:45:42 Post Procedure Pulses reassessed and unchanged 9:46:01 Post-procedure physical assessment completed. ASA score P 2 - A patient with mild systemic disease as per Brenton Denny MD. 9:46:03 Post procedure rhythm: unchanged. 9:46:07 Estimated blood loss: 10 ml 9:46:08 Post procedure instruction explained to patient.Patient verbalizes understanding. 9:46:09 Patient needs reinforcement of post procedure teaching. 9:46:45 Procedure type changed to Cath procedure, Diagnostic procedure, Sedation Charges, Moderate Sedation up to 15 minutes, PCI procedure, Coronary Stent, Coronary Stent Initial, Coronary Stent Additional 9:47:04 Procedure Complication : No complications 9:47:06 See physician's report for complete and final results. 9:47:26 EXOSEAL 6Fr (EX600) opened to sterile field. 9:48:10 Procedure and supply charges have been captured, reviewed, submitted and are correct. 9:48:58 Vital chart was stopped 9:49:01 Report given to Pre/Post Procedure Room. 9:49:04 Patient transfered to Pre/Post Procedure Room with Stretcher. 9:49:13 Procedure ended. 9:49:13 Full Disclosure recording stopped 9:49:15 End room use (Document Last) Intervention Summary Intervention Notes Time ActionType Lesion and Equipment Used Action# Pressure Duration Attributes 9:34:05 Place stent 1st Diag VERONICA RX 2.5 x 1 13 00:04 08 stent ([id number]) 9:36:27 Reinflate Mid LAD VERONICA RX 2.5 x 1 7 00:07 stent 08 stent balloon ([id number]) 9:36:44 Reinflate Mid LAD VERONICA RX 2.5 x 2 13 00:10 stent 08 stent balloon ([id number]) 9:37:02 Reinflate Mid LAD VERONICA RX 2.5 x 3 17 00:09 stent 08 stent balloon ([id number]) 9:39:24 Place stent Mid LAD VERONICA RX 3.0 x 4 19 00:16 22 stent ([id number]) 9:42:47 Inflate 1st Diag EUPHORA 2.5 x 2 17 00:04 balloon 10 Balloon ([id number]) Device Usage Item Name Manufacture Quantity Catalog Number Hospital Part Current Minimal Lot# / Charge Number Stock Stock Serial# Code ACIST Syringe Acist 1 69749 959227 618001 439264 20 (01582) [employer] Inc ACIST Hand Acist 1 84997 410343 589809 195023 5 Control (14468) [employer] Inc ACIST Manifold Acist 1 19124 823738 264143 733318 5 (65725) [employer] Systems Inc Medline Cath Cardinal 1 [id number] 535087 87549 505545 5 [facility] ([id number]) Bag Decanter Microtek 1 511566 10704 363495 5 () Medical Inc. DIAGNOSTIC WIRE [facility] [place] 1 938746 593377 913551 234852 30 .035 260cm J wire (809701) INFLATOR Merit Merit 1 LJ2884 801277 222558 656542 15 BasixCompak Medical (GU4703) Tegaderm 4 x 4 3M 1 1626W 448204 409438 806603 5 (1626W) PERCUTANEOUS Cook Medical 1 D69072 691831 863752 5 ENTRY 19GA needle SHEATH Prelude Merit 1 MUU-0P-36-35 747683 6954671 957208 5 6Fr 0.035 Medical (ETE-7T-52-035) CHOICE PT Extra [place] 2 [id number] 677840 897488 783824 5 Support 182cm Scientific wire ([id number]) GUIDE 6FR XBLAD Cardinal 1 90076652 279803 218675 808520 10 3.5 catheter Health ([id number]) VERONICA RX 2.5 x Medtronic 1 [id number] 946207 7978323 277267 5 [id number] 08 stent ([id number]) VERONICA RX 3.0 x Medtronic 1 [id number] 218499 3893897 594428 5 [id number] 22 stent ([id number]) EUPHORA 2.5 x Medtronic 1 [id number] 178873 746861 441583 5 [id number] 10 Balloon ([id number]) EXOSEAL 6Fr Cardinal 1 EX600 229164 760214 563300 10 (EX600) Health Signature Audit [place] Stage Time Signature Unsigned Intra-Procedure 10/13/2017 Sigrid 9:49:25 AM Counts RT(R) Signatures Monitor : Sigrid Signature : Counts RT Date : Time : [facility] [address] [place] [address]
--- NOTE | ~2017-10-12 | OP ---
PATIENT NAME: RUSTY MENDEZ JR MEDICAL RECORD: [id number] :42 LOCATION:D.CAT ADMISSION DATE: SURGEON: JEREMI DYE MD DATE OF OPERATION: 10/12/2017 PROCEDURES: 1. PTCA stent left circumflex. 2. Selective coronary angiography. INDICATION: Angina and coronary artery disease. DESCRIPTION OF PROCEDURE: After informed consent was obtained and after a detailed explanation of the risks, benefits as well as alternative therapies, the patient elected to proceed with angiogram and angioplasty. The left femoral area is prepped and draped in normal sterile fashion. Left femoral artery was cannulated via modified Seldinger technique with placement of 6-[place]ux[place] sheath. All catheters exchanged through this sheath. FINDINGS: The left circumflex has a subtotal stenosis in the mid vessel. This was addressed with a 2.5 x 12 mm Gigi stent. Result was 0% residual stenosis. OVERALL IMPRESSION: Successful PTCA stent of the left circumflex going from 95% initial stenosis to 0% residual. TRANSINT:[id number] Voice Confirmation ID: [id number] DOCUMENT ID: [id number] JEREMI DYE MD at 1849 CC: [id number] DICTATION DATE: 10/12/17 0947 GAUNTLET PAIRER: 10/12/17 1154 [facility] CLI 10/13/17 [id number] [place] [address]
--- NOTE | ~2017-10-12 | OP ---
PATIENT NAME: RUSTY MENDEZ JR MEDICAL RECORD: [id number] :42 LOCATION:D.CAT ADMISSION DATE: SURGEON: JEREMI DYE MD DATE OF OPERATION: 10/13/2017 PROCEDURES: 1. PTCA and stent of LAD. 2. PTCA and stent of LAD diagonal. 3. Selective coronary angiography. INDICATION: Angina and coronary artery disease. PROCEDURE IN DETAIL: After informed consent was obtained and after detailed explanation of risks, benefits as well as alternative therapies, the patient elected to proceed with angiogram and angioplasty. The right femoral area was prepped and draped in normal sterile fashion. Right femoral artery was cannulated via modified Seldinger technique with placement of 6-[place] sheath. All catheters exchanged through this sheath. FINDINGS: The LAD diagonal and LAD were 80%. Both were addressed with [place] stents. The diagonal with a 2.5 x 8, the LAD with a 3.0 x 22. Result was 0% residual stenosis. OVERALL IMPRESSION: Successful PTCA and stent of the LAD and diagonal, both going from 80% initial stenosis to 0% residual stenosis. TRANSINT:[id number] Voice Confirmation ID: [id number] DOCUMENT ID: [id number] JEREMI DYE MD at 1849 CC: [id number] DICTATION DATE: 10/13/17 0948 ELEMENTARY SUPERVISOR: 10/13/17 1321 [facility] CLI 10/13/17 [facility] [address] [place] [address]
--- NOTE | ~2017-10-12 | DS ---
PATIENT:RUSTY SALINAS JR :42 MEDICAL RECORD: [id number] DISCHARGE SUMMARY ADMISSION DATE: 10/12/17 DISCHARGE DATE: 10/13/17 DISCHARGE DIAGNOSES: 1. Angina. 2. Coronary artery disease. 3. Percutaneous transluminal coronary angioplasty stent of left circumflex and left anterior descending this admission. HOSPITAL COURSE: Mr. Salinas presents with anginal symptomatology, found to have 3-vessel coronary artery disease, underwent successful PTCA stent of the RCA last week. He is now brought back and underwent successful PTCA stent of the LAD and circumflex this week. He was discharged home with no change in his medications as he is already on aspirin and Plavix. Follow up with [facility] in 1 month. TRANSINT:[id number] Voice Confirmation ID: [id number] DOCUMENT ID: [id number] JEREMI DYE MD at 1849 CC: [id number] DICTATION DATE: 10/13/17 0946 SCIENCE LIAISON: 10/13/17 1447 [facility] CLI 10/13/17 [address] [place] [address]
--- NOTE | ~2017-10-12 | HP ---
PATIENT: RUSTY MENDEZ JR MEDICAL RECORD: [id number] ACCOUNT: [id number] LOCATION:[facility] : 42 ADMISSION DATE: 10/12/17 HISTORY AND PHYSICAL EXAMINATION ADMITTING DIAGNOSES: 1. Angina. 2. Coronary artery disease. 3. Recent percutaneous transluminal coronary angioplasty stent of the right coronary artery with concomitant disease LAD and circumflex. 4. Hypertension. 5. Hyperlipidemia. HISTORY OF PRESENT ILLNESS: This is a gentleman who presents with unstable angina, found to have 3-vessel coronary artery disease, underwent successful PTCA stent of the RCA, now brought back for PTCA stent of the LAD and circumflex. PHYSICAL EXAMINATION: GENERAL APPEARANCE: Well-nourished, well-developed, appears stated age. Level of distress, comfortable. PSYCHIATRIC: Mental status, alert, normal affect. Orientation, oriented to time, place and person. EYES: Lids and conjunctiva, noninjected. No discharge, no pallor. ENT: Lips, teeth, gums, normal dentition. Oropharynx, no cyanosis, no pallor. NECK: Carotid arteries, bilateral normal upstroke, no bruits, no thrills. JUGULAR VEINS: No jugular venous pressure or distention. CERVICAL LYMPH NODES: Nontender, nonenlarged. THYROID: Not enlarged. Nontender. No nodules. LUNGS: Respiratory effort, unlabored. CHEST: Normal curvature. No thoracic deformity. No chest wall tenderness. Percussion, resonant. Auscultation, clear. No wheezes, no rales, no rhonchi. CARDIOVASCULAR: Precordial exam, nondisplaced. No heaves or pericardial thrills. Rate and rhythm, regular. Heart sounds, normal S1, normal S2. No S3, no gallop, no rub. Systolic murmur, not heard. Diastolic murmur, not heard. EXTREMITIES: No cyanosis, no edema. Peripheral pulses, full and equal in all extremities, except as noted. No bruits appreciated. ABDOMEN: Soft, nondistended. Normal aorta. No bruit. Nontender. No masses. Liver, nontender, no hepatomegaly. Spleen, nontender, no splenomegaly. MUSCULOSKELETAL: No joint tenderness. No joint swelling. No erythema. NEUROLOGICAL: Normal gait, normal strength, normal tone. SKIN: Warm and dry. OVERALL IMPRESSION: Anginal symptomatology. We will proceed with percutaneous transluminal coronary angioplasty stent of the circumflex and LAD. TRANSINT:[id number] Voice Confirmation ID: [id number] DOCUMENT ID: [id number] HISTORY AND PHYSICAL [id number] RUSTY MENDEZ JR, JEFFREY MD at 1849 CC: [id number] DICTATION DATE: 10/13/17920 MANAGER GARDEN: 10/13/17 1001 [facility] CLI 10/13/17 [address] [place] [address]
--- NOTE | ~2017-10-12 | OP ---
PATIENT NAME: RUSTY MENDEZ JR MEDICAL RECORD: [id number] :42 LOCATION:D.CAT ADMISSION DATE: SURGEON: JEREMI DYE MD DATE OF OPERATION: 10/12/2017 PROCEDURE: Bilateral selective renal angiography. INDICATION: Out of control hypertension. PROCEDURE IN DETAIL: After informed consent was obtained and after a detailed description of the risks, benefits as well as alternative therapies, the patient elected to proceed with angiogram. The right femoral area had a preexisting sheath from coronary intervention. All catheters exchanged through this sheath. FINDINGS: There was subselection of each renal artery. 1. Right Side: The right renal artery is solitary artery off aorta with no significant renal artery stenosis. No pressure damping at the ostium. 2. Left side: The left renal artery is a solitary artery off the aorta with no significant pressure damping and no significant renal artery stenosis. OVERALL IMPRESSION: Essential hypertension, no renal artery stenosis is present. TRANSINT:[id number] Voice Confirmation ID: [id number] DOCUMENT ID: [id number] JEREMI DYE MD at 1849 CC: [id number] DICTATION DATE: 10/12/17 1128 PILOT PLANT RESEARCH TECHNICIAN: 10/12/17 1234 [facility] CLI 10/13/17 [facility] [address] [place] [address]
[~2017-10-12 08:08] MED LIST changes: -CATAPRES0.1 MG PO; -LEVAQUIN750 MG PO; -METOPROLOL TART50 MG PO; -NIFEDIPINE ER90 MG PO; -NORVASC5 MG PO; -TRESIBA FL100 UNIT/1 SC
[2017-10-12 08:46] VITALS: BP 229/85; BMI 27.1
[2017-10-12 09:07] LABS: BASOPHILS 0.3 % (0-2); EOSINOPHILS 3.6 % (0-7); HEMATOCRIT 41.3 % (42.0-54.0); HEMOGLOBIN 14.5 g/dL (13.5-17.5); IMMATURE GRANULOCYTES 0.3 % (0-5); LYMPHOCYTES 35.9 % (15-50); MCH 32.8 pg (26.0-34.0); MCHC 35.1 g/dL (31.0-37.0); MCV 93.4 fL (80.0-100.0); MEAN PLATELET VOLUME 9.3 fL (7.4-10.4); MONOCYTES 9.5 % (2-11); NEUTROPHILS 50.4 % (40-80); PLATELET COUNT 285 10x3/uL (130-400); RBC 4.42 10x6/uL (4.20-6.10); RDW 11.8 % (11.5-14.5); WBC 7.5 10x3/uL (4.8-10.8)
[2017-10-12 09:28] LABS: CALC OSMOLALITY 282 mosm/kg (275-300); CARBON DIOXIDE 29.9 mmol/L (21.0-32.0); CHLORIDE - SERUM 103 mmol/L (98-107); GLUCOSE 128 mg/dL (74-106); POTASSIUM - SERUM 3.5 mmol/L (3.5-5.1); SODIUM 141 mmol/L (136-145); UREA NITROGEN 12 mg/dL (7-18); eGFR NON AFRICAN AMERICAN 77 mL/min (90-120)
[2017-10-12 17:30] VITALS: BP 196/74; Ht 165.1 cm; Wt 74.1 kg
[2017-10-12 20:00] VITALS: BP 165/66
[2017-10-13] VITALS: BP 158/69
[2017-10-13 04:00] VITALS: BP 187/71
[2017-10-13 08:09] VITALS: BP 161/60
[2017-10-20] MEDS ORDERED: TRESIBA FL100 UNIT/1 SC (09:04)
[2017-10-20] MEDS ORDERED: NIFEDIPINE ER90 MG PO (09:06)
== END 2017-10-13 14:30 | disposition home or self-care (01) ==
LOC: D.M2 08:08 → D.CATH 08:08 → D.M2 16:45 → D.CLR 10-13 13:12 → D.CATH 10-13 14:30
PROVIDERS: Internal Medicine Interventional Cardiology
DX: I25.119 Atherosclerotic heart disease of native coronary artery with unspecified angina pectoris (principal); I10 Essential (primary) hypertension; E78.5 Hyperlipidemia, unspecified; Z01.812 Encounter for preprocedural laboratory examination
CPT/HCPCS: 36252; C9600 ×2; C9601

== ENCOUNTER 2017-10-21 05:00 | Inpatient (IN) | payer MEDICARE ==
[2017-10-20 10:04] LABS: HEMATOCRIT 40.5 % (42.0-54.0); HEMOGLOBIN 14.4 g/dL (13.5-17.5); MCH 32.4 pg (26.0-34.0); MCHC 35.6 g/dL (31.0-37.0); MCV 91.2 fL (80.0-100.0); MEAN PLATELET VOLUME 8.5 fL (7.4-10.4); RBC 4.44 10x6/uL (4.20-6.10); RDW 11.8 % (11.5-14.5); WBC 6.3 10x3/uL (4.8-10.8)
[2017-10-20 10:12] LABS: APTT 28.2 SECONDS (22.8-39.4); INR 0.86 (0.85-1.17); PROTIME 11.3 SECONDS (11.6-15.0)
[2017-10-20 10:14] LABS: APPEARANCE CLEAR (CLEAR); BILIRUBIN NEGATIVE (NEGATIVE); COLOR YELLOW (YELLOW); GLUCOSE 1000 mg/dL (NEGATIVE); KETONE NEGATIVE (NEGATIVE); NITRITE NEGATIVE (NEGATIVE); PROTEIN NEGATIVE (NEGATIVE); SPECIFIC GRAVITY 1.015 (1.005-1.020); UROBILINOGEN NORMAL (NORMAL)
[2017-10-20 10:24] LABS: ALBUMIN 3.8 g/dL (3.4-5.0); ANION GAP 11.8 mmol/L (8-16); BILIRUBIN - TOTAL 0.42 mg/dL (0.2-1.3); CARBON DIOXIDE 30.1 mmol/L (21.0-32.0); CREATININE - SERUM 1.1 mg/dL (0.6-1.3); POTASSIUM - SERUM 3.9 mmol/L (3.5-5.1); PROTEIN - SERUM 8.2 g/dL (6.4-8.2)
[2017-10-21] VITALS (55 sets, daily range): BP systolic 112–148; BP diastolic 36–71; BMI 26.9
[~2017-10-21] VITALS: Ht 165.1 cm; Wt 75.9 kg
--- NOTE | ~2017-10-21 | HP ---
PATIENT: RUSTY MENDEZ JR MEDICAL RECORD: [id number] ACCOUNT: [id number] LOCATION:[facility].CV02 : 41 ADMISSION DATE: 10/21/17 HISTORY AND PHYSICAL EXAMINATION NameRIRUSTY MARTINEZ (77yo, M) ID# [id number]. Date/Time10/14/2017 11:34LANHW53/[birth year]/1942Service Dept.NP_[facility] ClinicProviderEDABRAHAN ZARAGOZA MDInsuranceMed Primary: [facility] (MEDICARE REPLACEMENT/ADVANTAGE - PPO) Insurance # : [id number] Policy/Group # : [id number] Referring Provider Name : USHA CASTILLO Employer Name : RETIRED Prescription: CMX - Member is eligible. Chief Complaint Carotid stenosis Patient's Care Team Referring Provider (): USHA CASTILLO: [address] [place] [address], , Patient's Pharmacies [facility] ([facility]): [address] [facility] [id number], , Vitals BP:142/60 sitting R arm 10/14/2017 10:52 am 146/64 sitting R arm 10/14/2017 10:53 amHR:64/REG 10/14/2017 10:54 amHt:5 ft 5 in 10/14/2017 10:49 amWt:163.4 lbs 10/14/2017 10:50 amBMI:27.2 10/14/2017 10:50 amAllergies Reviewed Allergies LATEX: RashPENICILLINS: RashMedications Reviewed Medications BD Insulin Syringe Ultra-Fine 0.5 mL 31 gauge x 5/16"05/11/16 filledCaremarkclopidogrel 75 mg ketluy35/09/18 filledCaremarkcyclobenzaprine 10 mg tablet TAKE ONE TABLET BY MOUTH TWICE A DAY CPWAFM53/03/16 Felix Wilsoncycline hyclate 100 mg /11/16 filledCaremarkDULoxetine 60 mg capsule,delayed /11/16 filledCaremarkFarxiga 10 mg xaxvsa62/26/16 filledCaremarkFarxiga 5 mg /28/16 filledCaremarkgabapentin 400 mg furiogi94/21/18 filledCaremarkHumuLIN N NPH U-100 Insulin (isophane susp) 100 unit/mL kcbiawbfsphe15/30/16 filledCaremarkHumuLIN R Regular U-100 Insulin 100 unit/mL injection /25/16 filledCaremarkHYDROcodone 10 mg-acetaminophen 325 mg tablet TAKE TABLET ONE BY MOUTH 5 TIMES PER DAY09/18/17 filledCaremarkhydrocodone 10 mg-chlorpheniramine 8 mg/5 mL oral susp extend.rel 01/31/16 filledCaremarkInvokana 100 mg essrqt85/04/16 filledCaremarkKenalog 10 mg/mL suspension for injection Take 1 mL by injection route as directed.05/12/16 Jarrett Nesssinopril 10 mg-hydrochlorothiazide 12.5 mg kysugp52/07/16 filledCaremarklosartan 50 mg-hydrochlorothiazide 12.5 mg upgkyy29/11/16 filledCaremarkmeloxicam 15 mg ecgaqa15/25/16 filledCaremarkmetFORMIN 1,000 mg /21/18 filledCaremarkmethylPREDNISolone 4 mg tablets in a dose pack04/14/16 filledCaremarkNIFEdipine ER 90 mg tablet,extended release 24 hr10/13/17 filledCaremarkraNITIdine 300 mg yivybs41/04/16 filledCaremarktraZODone 100 mg zyncny76/21/18 filledCaremarkVentolin HFA 90 mcg/actuation aerosol cojptqf69/26/16 filledCaremarkProblems Reviewed Problems HISTORY AND PHYSICAL [id number] RUSTY MENDEZ JR Superficial peroneal neuropathy Plantar nerve lesion Left carotid artery stenosis - Onset: 10/07/2017 Degenerative joint disease of shoulder region Shoulder joint pain Disorder of shoulder Disorder of joint of ankle and/or foot Cervical spondylosis without myelopathy Lumbosacral spondylosis without myelopathy Neck pain Medial epicondylitis Lateral epicondylitis Calcaneal spur Acquired trigger finger Plantar fascial fibromatosis Plantar fasciitis Pain in forearm Rib pain Forearm sprain Disorder of rotator cuff Degeneration of intervertebral disc Inflammatory disorder of extremity Pain in left knee Pain in right foot Family History Reviewed Family History Non-contributory.Social History Reviewed Social History Cardiology Smoking Status: Never smoker Diabetes: Y General stress level: Low Alcohol intake: None Occupation: Retired/Disabled Marital status: Is blood transfusion acceptable in an emergency?: Y Tobacco-years of use: 0 Surgical History Reviewed Surgical History Open rotator cuff repair: chronic tear - 09/24/2012 Shoulder arthroscopy with distal clavicle excision - 12/05/2011 Shoulder arthroscopy with rotator cuff repair - 04/08/2011 Shoulder arthroscopy/surgery - 06/25/2010 Repair rotator cuff chronic - 06/25/2010 Past Medical History Reviewed Past Medical History Diabetes: Y High Blood Pressure: Y Joint Pain or Swelling: Y Notes: new diagnosis Cold Urticaria Documents for Discussion N/A Screening HISTORY AND PHYSICAL [id number] RUSTY MENDEZ JR None recorded. HPI Cerebral Vascular Disease Reported by patient. Notes: the patient has symptoms of dizziness Syncope Presyncope Turned his head to the right he gets dizzy If the patient looks up he develops Syncope carotid artery disease coronary artery disease ROS Patient reports no fever, no night sweats, no significant weight gain, no significant weight loss, and no exercise intolerance; dizziness when he looks up. He reports chest pain on exertion and arm pain on exertion but reports no shortness of breath when walking, no shortness of breath when lying down, no palpitations, and no known heart murmur. He reports arthralgias/joint pain but reports no muscle aches, no muscle weakness, no back pain, and no swelling in the extremities. He reports no dry eyes, no irritation, and no vision change. He reports no difficulty hearing and no ear pain. He reports no frequent nosebleeds and no nose/sinus problems. He reports no sore throat, no bleeding gums, no snoring, no dry mouth, no mouth ulcers, no oral abnormalities, and no blade t h problems. He reports no jugular vein distension and no swollen glands. He reports no cough, no wheezing, no shortness of breath, and no coughing up blood. He reports no abdominal pain, no vomiting, normal appetite, no diarrhea, not vomiting blood, no na u sea, and no constipation. He reports no incontinence, no difficulty urinating, no hematuria, and no increased frequency. He reports no abnormal mole, no jaundice, and no rashes. He reports no loss of consciousness, no weakness, no numbness, no seizures, n o dizziness, and no headaches. He reports no depression, no sleep disturbances, feeling safe in relationship, and no alcohol abuse. He reports no fatigue. He reports no swollen glands and no bruising. He reports no runny nose, no sinus pressure, no itching , no hives, and no frequent sneezing. ROS as noted in the HPI Physical Exam Patient is a 77-year-old male. Constitutional: General Appearance well nourished and developed and healthy-appearing. Level of Distress NAD. Ambulation ambulating normally. Cardiovascular: Apical Impulse not displaced or no thrill. Heart Auscultation normal s1 and s2; no murmurs, rubs, or gallops; and RRR. Arterial Pulses no abdominal aorta bruits, femoral bruits, or popliteal bruits and 2+ bilateral, carotid 2+ bilateral, femoral 2+ bilateral, popliteal 2+ bilateral, and dorsalis pedis 2+ bilateral. Edema no edema or varicosities. Lungs: Repiratory Effort no dyspnea. Percussion no hyperresonance or dullness or flatness. Auscultation no wheezing, rhonchi, or rales / crackles and b reathing sounds normal, good air movement, and CTA except as noted. Abdomen: Bowl Sounds normal. Inspection and Palpation no tenderness, guarding, masses, or rebound tenderness and soft and non-distended. Liver non-tender and no hepatomegaly. Spleen non-tender and no splenomegaly. Hernia none palpable. Musculoskeletal System: Gait And Stance normal gait and stance. Digits and Nails normal nails and no cyanosis. HISTORY AND PHYSICAL [id number] RUSTY MENDEZ JR Neurologic: Cranial Nerves grossly intact. Reflexes DTRs 2+ bilaterally throughout. Sensation grossly intact. Lymph Nodes: Lymph Nodes no cervical LAD, supraclavicular LAD, axillary LAD, or inguinal LAD. Eyes: Lids and Conjunctivae no discharge or pallor and non-injected. Pupils PERRLA. Cornea grossly intact. EOM EOMI. Lens clear. Sclerae non-icteric. Neck: Neck no masses, enlarged lymph nodes, or carotid bruits and supple and trachea midline; bilateral soft carotid bruits. Thyroid no enlargement or nodules and non-tender. Skin: Inspection and Palpation no rash, lesions, ulcers, jaundice, or abnormal nevi. Assessment / Plan post coronary angioplasty Carotid artery disease with recanalization of total occlusion left internal carotid artery High-grade stenosis of the right internal carotid artery symptomatic 1. Carotid artery stenosis I65.29: Occlusion and stenosis of unspecified carotid artery CAROTID STENOSIS: CARE INSTRUCTIONS Discussion Notes ssevere right internal carotid artery stenosis.. I have discussed his disease process with him and his daughter in detail as well as the alternative methods of treatment.We discussed right carotid endarterectomy including the expected benefits and risk which include bleeding, infection, stroke, and , and the imponderab les. He and his daughter understand all of the above and wishes to proceed with planned surgery. schedule surgery for 21 October JOSE E ZARAGOZA MD CC: [id number] DICTATION DATE: 10/14/17 1100 THEOLOGY PROFESSOR: DM 10/21/[address] [facility] [address] [place] [address]
--- NOTE | ~2017-10-21 | OP ---
PATIENT NAME: RUSTY MENDEZ JR MEDICAL RECORD: [id number] LOCATION:[facility].CV02 ADMISSION DATE:10/21/17 SURGEON: JOSE E ZARAGOZA MD DATE OF OPERATION: 10/21/2017 SURGEON: Jose E Zaragoza MD ANESTHESIA: General endotracheal, Dr. Shea. OPERATION PERFORMED: Right carotid endarterectomy with patch angioplasty. PREOPERATIVE DIAGNOSES: Severe right internal carotid artery stenosis, total occlusion of the left internal carotid. POSTOPERATIVE DIAGNOSES: Severe right internal carotid artery stenosis, total occlusion of the left internal carotid. INDICATION FOR OPERATION: Symptomatic carotid stenosis. FINDINGS AT OPERATION: Severe stenosis, right internal carotid artery. There were no EEG changes with clamping or unclamping of the carotid artery. ESTIMATED BLOOD LOSS: Less than 100 mL. DESCRIPTION OF PROCEDURE: After informed consent, adequate preoperative medication evaluation, the patient was brought to the operating room, placed on the table in the supine position. After induction of general endotracheal anesthesia and application of appropriate monitoring devices, the right neck and chest were prepped and draped in sterile field using Betadine scrub, alcohol, and Betadine solution. A Betadine-impregnated drape was also used. An oblique incision was made in the skin crease. Dissection carried down to the fascia. Hemostasis was maintained with electrocautery. Facial vein was identified and divided. Utilizing sharp dissection, the common carotid, internal and external carotid arteries were dissected free of surrounding areas, protecting the neurological structures. The patient was given a calculated dose of heparin, after 3 minutes, clamps were applied. After 2 minutes, no EEG changes. The arteriotomy was made and extended with Michelle scissors. Artery underwent endarterectomy sharply. Artery underwent extensive debridement and irrigation. Utilizing a vascular patch and running 7-0 Prolene suture, the arteriotomy was closed with a patch angioplasty technique. All maneuvers to remove trapped air were performed. The clamps removed sequentially. There were no EEG changes. The patient was given a calculated dose of protamine to reverse the heparin. Hemostasis was assured. A #7 Josué-Blake drain was left in the depths of wound and brought out through the base of the neck. Neck was again irrigated. Instrument count and sponge count were correct times 2. Neck was closed in layers utilizing 3-0 Vicryl on the platysma, 5-0 subcuticular Monocryl on the skin. Sterile dressings were applied. The patient tolerated the procedure well and was transferred to the CV ICU in satisfactory condition. TRANSINT:[id number] Voice Confirmation ID: [id number] DOCUMENT ID: [id number] OPERATIVE REPORT [id number] RUSTY MENDEZ JR, EDWARD MD CC: [id number] DICTATION DATE: 10/21/17 1013 SETTER INDUCTION HEATING EQUIPMENT: 10/21/17 1232 ADM IN [place] [id number] [place] [address]
[~2017-10-21 05:00] MED LIST changes: +NIFEDIPINE ER90 MG PO; +TRESIBA FL100 UNIT/1 SC
[2017-10-21] MEDS ORDERED: NIFEDIPINE ER90 MG PO (05:34)
[2017-10-22] VITALS (94 sets, daily range): BP systolic 114–149; BP diastolic 44–71; BMI 27.6
[2017-10-23] VITALS (85 sets, daily range): BP systolic 113–165; BP diastolic 39–90; Ht 165.1 cm; Wt 75.9 kg
[2017-10-23 05:52] LABS: HEMOGLOBIN 14.6 g/dL (13.5-17.5); MCH 42.9 pg (26.0-34.0); MCHC 47.1 g/dL (31.0-37.0); MCV 91.2 fL (80.0-100.0); MEAN PLATELET VOLUME 9.2 fL (7.4-10.4); RBC 3.4 10x6/uL (4.20-6.10); RDW 11.8 % (11.5-14.5); WBC 22.9 10x3/uL (4.8-10.8)
[2017-10-23 06:05] LABS: CREATININE - SERUM 1.1 mg/dL (0.6-1.3)
[2017-10-23 14:07] LABS: HEMATOCRIT 31.2 % (42.0-54.0); MCV 91.2 fL (80.0-100.0); MEAN PLATELET VOLUME 9.2 fL (7.4-10.4); PLATELET COUNT 211 10x3/uL (130-400); RBC 3.42 10x6/uL (4.20-6.10); RDW 11.7 % (11.5-14.5); WBC 24.2 10x3/uL (4.8-10.8)
[2017-10-23 16:08] LABS: HEMOGLOBIN 13.4 g/dL (13.5-17.5); MCH 39.2 pg (26.0-34.0); MCHC 42.8 g/dL (31.0-37.0)
[2017-10-23 16:43] LABS: LYMPHOCYTES 29 % (15-50); MONOCYTES 1 % (2-11); NEUTROPHILS 70 % (40-80); PLATELET ESTIMATE NORMAL
[2017-10-23 17:45] LABS: POTASSIUM - SERUM 4.2 mmol/L (3.5-5.1)
[2017-10-23 17:46] LABS: ANION GAP 12.2 mmol/L (8-16)
[2017-10-23 17:47] LABS: CALCIUM 8.2 mg/dL (8.5-10.1)
[2017-10-23 17:50] LABS: ALBUMIN 3.2 g/dL (3.4-5.0)
[2017-10-23 18:13] LABS: BILIRUBIN - TOTAL 0.4 mg/dL (0.2-1.3)
[2017-10-24] VITALS (51 sets, daily range): BP systolic 110–152; BP diastolic 35–81
[2017-10-24 06:55] LABS: ANION GAP 14.7 mmol/L (8-16); CARBON DIOXIDE 24.9 mmol/L (21.0-32.0); POTASSIUM - SERUM 3.6 mmol/L (3.5-5.1)
[2017-10-24 06:56] LABS: CREATININE - SERUM 1.4 mg/dL (0.6-1.3)
[2017-10-24 08:07] LABS: APPEARANCE CLEAR (CLEAR); COLOR YELLOW (YELLOW); SPECIFIC GRAVITY 1.015 (1.005-1.020)
[2017-10-24 08:08] LABS: BACTERIA MODERATE /hpf (NONE SEEN); BILIRUBIN NEGATIVE (NEGATIVE); GLUCOSE NEGATIVE (NEGATIVE); KETONE NEGATIVE (NEGATIVE); NITRITE NEGATIVE (NEGATIVE); PROTEIN NEGATIVE (NEGATIVE); UROBILINOGEN NORMAL (NORMAL); WHITE CELLS - URINE 0-5 /hpf (0-5)
[2017-10-24 08:37] LABS: BASOPHILS 0.6 % (0-2); EOSINOPHILS 1.7 % (0-7); IMMATURE GRANULOCYTES 3.9 % (0-5); LYMPHOCYTES 28.2 % (15-50); MEAN PLATELET VOLUME 9.4 fL (7.4-10.4); MONOCYTES 9.7 % (2-11); NEUTROPHILS 55.9 % (40-80); PLATELET COUNT 209 10x3/uL (130-400); RBC 3.99 10x6/uL (4.20-6.10)
[2017-10-24 09:20] LABS: WBC 18.1 10x3/uL (4.8-10.8)
[2017-10-24 09:21] LABS: HEMOGLOBIN 14.1 g/dL (13.5-17.5); MCH 35.3 pg (26.0-34.0); MCHC 39.2 g/dL (31.0-37.0)
[2017-10-24 16:48] LABS: ANION GAP 14.9 mmol/L (8-16); CALCIUM 8.1 mg/dL (8.5-10.1); CARBON DIOXIDE 23.9 mmol/L (21.0-32.0); CREATININE - SERUM 1.6 mg/dL (0.6-1.3); POTASSIUM - SERUM 3.8 mmol/L (3.5-5.1)
[2017-10-25] VITALS (9 sets, daily range): BP systolic 95–151; BP diastolic 61–66
[2017-10-25] MEDS ORDERED: LEVAQUIN750 MG PO (11:33)
[2017-10-25] MEDS ORDERED: METOPROLOL TART50 MG PO (11:33)
== END 2017-10-25 13:30 | disposition home or self-care (01) | DRG 38 ==
LOC: D.SDCHOLD 05:00 → D.CVICU 05:00 → D.SDCHOLD 07:30 → D.CVICU 08:45 → D.SDCHOLD 16:01 → D.CVICU 16:06
PROVIDERS: Family Medicine; Internal Medicine Cardiovascular Disease
PROC: 03UH0JZ Supplement Right Common Carotid Artery with Synthetic Substitute, Open Approach (ICD-10-PCS; 2017-10-21)
PROC: 03CH0ZZ Extirpation of Matter from Right Common Carotid Artery, Open Approach (ICD-10-PCS; principal; 2017-10-21 07:30)
DX: I65.23 Occlusion and stenosis of bilateral carotid arteries (principal); J98.11 Atelectasis; I10 Essential (primary) hypertension; I25.10 Atherosclerotic heart disease of native coronary artery without angina pectoris; Z95.5 Presence of coronary angioplasty implant and graft; I70.209 Unspecified atherosclerosis of native arteries of extremities, unspecified extremity; I65.8 Occlusion and stenosis of other precerebral arteries; E11.65 Type 2 diabetes mellitus with hyperglycemia

== ENCOUNTER 2017-10-26 12:12 | Observation (INO) | payer MEDICARE ==
[~2017-10-26] VITALS: Ht 165.1 cm; Wt 74.1 kg
[~2017-10-26 12:12] MED LIST changes: +LEVAQUIN750 MG PO; +METOPROLOL TART50 MG PO
[2017-10-26 12:59] LABS: BASOPHILS 0.2 % (0-2); EOSINOPHILS 4.5 % (0-7); HEMATOCRIT 34.1 % (42.0-54.0); HEMOGLOBIN 11.8 g/dL (13.5-17.5); IMMATURE GRANULOCYTES 0.7 % (0-5); LYMPHOCYTES 21.3 % (15-50); MCH 31.6 pg (26.0-34.0); MCHC 34.6 g/dL (31.0-37.0); MCV 91.4 fL (80.0-100.0); MEAN PLATELET VOLUME 9.4 fL (7.4-10.4); MONOCYTES 10.2 % (2-11); NEUTROPHILS 63.1 % (40-80); PLATELET COUNT 211 10x3/uL (130-400); RBC 3.73 10x6/uL (4.20-6.10); RDW 12.3 % (11.5-14.5)
[2017-10-26 13:15] LABS: ALBUMIN 2.2 g/dL (3.4-5.0); ALKALINE PHOSPHATASE 48 U/L (46-116); ALT (SGPT) 12 U/L (10-68); BILIRUBIN - TOTAL 0.33 mg/dL (0.2-1.3); CALCIUM 8.6 mg/dL (8.5-10.1); CHLORIDE - SERUM 102 mmol/L (98-107); POTASSIUM - SERUM 3.3 mmol/L (3.5-5.1); PROTEIN - SERUM 6.3 g/dL (6.4-8.2); SODIUM 139 mmol/L (136-145)
[2017-10-26 13:16] LABS: CALC OSMOLALITY 281 mosm/kg (275-300); CARBON DIOXIDE 31.3 mmol/L (21.0-32.0); GLUCOSE 167 mg/dL (74-106); TROPONIN-I < 0.017 ng/mL (0.000-0.060); UREA NITROGEN 13 mg/dL (7-18); eGFR NON AFRICAN AMERICAN 77 mL/min (90-120)
[2017-10-26 17:41] VITALS: BP 155/68; Ht 165.1 cm; Wt 74.1 kg
[2017-10-26 18:48] VITALS: BP 125/68
[2017-10-26 22:58] VITALS: BP 160/65
[2017-10-27 04:47] LABS: BASOPHILS 0.3 % (0-2); HEMATOCRIT 33.3 % (42.0-54.0); HEMOGLOBIN 11.6 g/dL (13.5-17.5); IMMATURE GRANULOCYTES 0.8 % (0-5); LYMPHOCYTES 35.5 % (15-50); MCH 32.5 pg (26.0-34.0); MCHC 34.8 g/dL (31.0-37.0); MCV 93.3 fL (80.0-100.0); MEAN PLATELET VOLUME 9.1 fL (7.4-10.4); MONOCYTES 9.8 % (2-11); NEUTROPHILS 48.6 % (40-80); PLATELET COUNT 232 10x3/uL (130-400); RBC 3.57 10x6/uL (4.20-6.10); RDW 12.5 % (11.5-14.5); WBC 6.4 10x3/uL (4.8-10.8)
[2017-10-27 05:14] LABS: ALBUMIN 2.2 g/dL (3.4-5.0); ALKALINE PHOSPHATASE 41 U/L (46-116); ALT (SGPT) 12 U/L (10-68); CALC OSMOLALITY 282 mosm/kg (275-300); CALCIUM 8.8 mg/dL (8.5-10.1); CHLORIDE - SERUM 104 mmol/L (98-107); CREATININE - SERUM 0.9 mg/dL (0.6-1.3); POTASSIUM - SERUM 3.2 mmol/L (3.5-5.1); PROTEIN - SERUM 6.2 g/dL (6.4-8.2); SODIUM 142 mmol/L (136-145); UREA NITROGEN 13 mg/dL (7-18); eGFR NON AFRICAN AMERICAN 87 mL/min (90-120)
[2017-10-27 05:15] LABS: GLUCOSE 100 mg/dL (74-106)
[2017-10-27 05:40] VITALS: BP 172/70
[2017-10-27 09:20] VITALS: BP 176/82
[2017-10-27 11:12] LABS: PLT FUNCT.(P2Y12) PLAVIX 105 PRU (194-418)
[2017-10-27 13:15] VITALS: BP 186/76
[2017-10-27 17:01] VITALS: BP 159/90; BP 189/71
[2017-10-27 22:17] VITALS: BP 116/83
[2017-10-28 03:56] VITALS: BP 124/84
[2017-10-28 05:35] LABS: BASOPHILS 0.5 % (0-2); EOSINOPHILS 4.8 % (0-7); HEMATOCRIT 33.5 % (42.0-54.0); HEMOGLOBIN 11.3 g/dL (13.5-17.5); IMMATURE GRANULOCYTES 0.6 % (0-5); LYMPHOCYTES 42.3 % (15-50); MCH 31.8 pg (26.0-34.0); MCHC 33.7 g/dL (31.0-37.0); MCV 94.4 fL (80.0-100.0); MEAN PLATELET VOLUME 9.4 fL (7.4-10.4); MONOCYTES 10.6 % (2-11); NEUTROPHILS 41.2 % (40-80); PLATELET COUNT 238 10x3/uL (130-400); RBC 3.55 10x6/uL (4.20-6.10); RDW 12.5 % (11.5-14.5); WBC 6.5 10x3/uL (4.8-10.8)
[2017-10-28 06:02] LABS: ALBUMIN 2.2 g/dL (3.4-5.0); ALKALINE PHOSPHATASE 41 U/L (46-116); ALT (SGPT) 11 U/L (10-68); CALC OSMOLALITY 283 mosm/kg (275-300); CALCIUM 8.6 mg/dL (8.5-10.1); CHLORIDE - SERUM 104 mmol/L (98-107); POTASSIUM - SERUM 3.4 mmol/L (3.5-5.1); PROTEIN - SERUM 6.1 g/dL (6.4-8.2); SODIUM 140 mmol/L (136-145); UREA NITROGEN 16 mg/dL (7-18); eGFR NON AFRICAN AMERICAN 77 mL/min (90-120)
[2017-10-28 06:07] LABS: GLUCOSE 170 mg/dL (74-106)
[2017-10-28 08:06] VITALS: BP 188/65
[2017-10-28 12:44] VITALS: BP 153/71
[2017-10-28 16:25] VITALS: BP 174/70
[2017-10-28 21:38] VITALS: BP 183/75
[2017-10-29 03:50] VITALS: BP 168/67
[2017-10-29 05:40] LABS: BASOPHILS 0.4 % (0-2); EOSINOPHILS 4.2 % (0-7); HEMATOCRIT 34.5 % (42.0-54.0); HEMOGLOBIN 11.4 g/dL (13.5-17.5); IMMATURE GRANULOCYTES 0.8 % (0-5); LYMPHOCYTES 41.1 % (15-50); MCH 31.4 pg (26.0-34.0); MEAN PLATELET VOLUME 9.2 fL (7.4-10.4); MONOCYTES 8.5 % (2-11); PLATELET COUNT 274 10x3/uL (130-400); RBC 3.63 10x6/uL (4.20-6.10); RDW 12.4 % (11.5-14.5); WBC 7.5 10x3/uL (4.8-10.8)
[2017-10-29 06:11] LABS: ALBUMIN 2.4 g/dL (3.4-5.0); BILIRUBIN - TOTAL 0.22 mg/dL (0.2-1.3); CALCIUM 8.9 mg/dL (8.5-10.1); CARBON DIOXIDE 30.5 mmol/L (21.0-32.0); CREATININE - SERUM 1.1 mg/dL (0.6-1.3); PROTEIN - SERUM 6.4 g/dL (6.4-8.2)
[2017-10-29 06:15] LABS: ANION GAP 9.9 mmol/L (8-16); POTASSIUM - SERUM 4.4 mmol/L (3.5-5.1)
[2017-10-29] MEDS ORDERED: NORVASC5 MG PO (08:00)
[2017-10-29] MEDS ORDERED: METOPROLOL TART50 MG PO (08:00)
[2017-10-29] MEDS ORDERED: CATAPRES0.1 MG PO (08:01)
[2017-10-29 08:14] VITALS: BP 183/77
== END 2017-10-29 11:12 | disposition home or self-care (01) ==
LOC: D.ER 12:12 → OBSVTIME 16:45 → D.EDHOLD 16:45 → D.MS 16:45
PROVIDERS: Emergency Medicine; Family Medicine; Thoracic Surgery (Cardiothoracic Vascular Surgery)
DX: I16.0 Hypertensive urgency (principal); G45.9 Transient cerebral ischemic attack, unspecified; I65.22 Occlusion and stenosis of left carotid artery